=== PATIENT | male | born 1955 | race Caucasian/White ===

== ENCOUNTER 2016-10-04 14:37 | Emergency (ER) | payer SELFPAY ==
[~2016-10-04] VITALS: Ht 170.2 cm; Wt 80.5 kg
[~2016-10-04 14:37] MED LIST: HYDR-3533 PO; NAPR500 PO
[2016-10-04 14:41] VITALS: BP 179/85; PULSE 81; RESP 14; TEMP 98.2; O2SAT 99
--- NOTE | 2016-10-04 14:47 | PD ---
Physical Exam Time Seen by Provider: 14:45 Narrative 61yo M c/o L foot pain x 3 days. No injury. Denies fever. VS reviewed. Patient seen in triage. Awaiting bed placement. Data Data Last Documented VS Vital Signs Date Time Temp Pulse Resp B/P Pulse Ox O2 Delivery O2 Flow Rate FiO2 10/04/16 14:41 98.2 81 14 179/85 99 MDM Supervised Visit with MARIAJOSE: Rochelle Guaman October 04, 2016 14:47
--- NOTE | 2016-10-04 15:41 | PD ---
HPI . left ankle pain x 3 days with swelling Chief Complaint: Edema Time Seen by Provider: 15:41 Travel History International Travel<30 days: No Contact w/Intl Traveler<30days: No Traveled to known affect area: No History of Present Illness HPI 61-year-old male who recently suffered a stroke about 2 and half weeks ago here with complaints of left ankle pain and swelling for the past 3 days. Patient does have history of gout and thinks he may be having an acute flare up. He denies any recent injury to this left ankle. He tells me that it is difficult walking and the pain is severe. He is accompanied by his . He has no other complaints. [facility] Past Medical History Gout: Yes Immunizations Current: Yes Social History Alcohol Use: Yes (beer daily) Tobacco Use: Yes Substance Use: No Allergies-Medications (Allergen,Severity, Reaction): Coded Allergies: Lidocaine (Verified Allergy, Severe, Swelling, 10/04/16) Reported Meds & Prescriptions Reported Meds & Active Scripts Active Prednisone 50 Mg Tab 50 Mg PO DAILY Reported Plavix (Clopidogrel Bisulfate) 75 Mg Tab 75 Mg PO DAILY Crestor (Rosuvastatin Calcium) 40 Mg Tab 40 Mg PO HS Aspirin 325 Mg Tab 325 Mg PO DAILY Review of Systems General / Constitutional: No: Fever Eyes: No: Visual changes HENT: No: Headaches Cardiovascular: No: Chest Pain or Discomfort Respiratory: No: Shortness of Breath Gastrointestinal: No: Abdominal Pain Genitourinary: No: Dysuria Musculoskeletal: Positive: Pain (left ankle pain) Skin: No Rash Neurologic: No: Weakness Psychiatric: No: Depression Endocrine: No: Polydipsia Hematologic/Lymphatic: No: Easy Bruising Physical Exam Narrative GENERAL: AAO x 3, no acute distress, Well-nourished, well-developed patient. SKIN: Warm and dry. No visible rashes or bruising. HEAD: Normocephalic and atraumatic. EYES: No scleral icterus. No injection or drainage. ENT: No nasal drainage noted. Mucous membranes pink. Airway patent. NECK: Supple, trachea midline. No JVD. CARDIOVASCULAR: Regular rate and rhythm without murmurs, gallops, or rubs. RESPIRATORY: Breath sounds equal bilaterally. No accessory muscle use. No rhonchi or rales. GASTROINTESTINAL: Abdomen soft, non-tender, nondistended. EXTREMITIES: No cyanosis, left ankle mild edema, mildly warm to touch, tender to touch, ROM normal. gouty tophi on 2nd toe of left foot NEURO: sensation and strength intact BACK: Nontender without obvious deformity. No CVA tenderness. PSYCH: AAO x 3, normal affect. Data Data Last Documented VS Vital Signs Date Time Temp Pulse Resp B/P Pulse Ox O2 Delivery O2 Flow Rate FiO2 10/04/16 15:41 Room Air 10/04/16 14:41 98.2 81 14 179/85 99 Orders Ketorolac Inj (Toradol Inj) (10/04/16 16:00) [facility] Medical Decision Making Medical Screen Exam Complete: Yes Emergency Medical Condition: Yes Medical Record Reviewed: Yes Differential Diagnosis gout, OA, RA, less likely sprain, less likely fracture Narrative Course 61-year-old male who recently suffered a stroke about 2 and half weeks ago here with complaints of left ankle pain and swelling for the past 3 days. Patient does have history of gout and thinks he may be having an acute flare up. He denies any recent injury to this left ankle. He tells me that it is difficult walking and the pain is severe. He is accompanied by his . He has no other complaints. Patient seen and examined. he appears to have an acute flare of gout. I will go ahead and prescribe him some steroids. In the emergency department I have provided him with a Toradol injection. Recommend follow-up with his primary care provider. Patient verbalized understanding of instructions, questions were answered, and thanked me for their care. I advised them if their condition worsens, please return to the nearest emergency room for further care. Diagnosis Primary Impression: Gout of ankle Qualified Code: M10.9 - Gout of left ankle, unspecified cause, unspecified chronicity Patient Instructions: General Instructions, Gout (ED) Additional Instructions: Please return to emergency department if your symptoms return or worsen. Follow up with your primary care provider. Take medications as prescribed. Med/Other Pt SpecificInfo: Prescription(s) given Scripts Prednisone 50 Mg Tab50 Mg PO DAILY #5 TAB Prov:Lila Huff MD 10/04/16 Disposition: 01 DISCHARGE HOME Condition: Stable Marisel Rubio October 04, 2016 15:41 Marisel Rubio October 04, 2016 15:41
[2016-10-04] MEDS ORDERED: PLAV75TA29 PO (15:45)
[2016-10-04] MEDS ORDERED: ASPI325T PO (15:45)
[2016-10-04] MEDS ORDERED: ROSU40 PO (15:45)
[2016-10-04] MEDS ORDERED: PRED50 PO (15:51)
[2016-10-04] MEDS ORDERED: KETOROLAC TROMETHAMINE 60 MG/2 ML (IM) VIAL IM ONE (16:00)
== END 2016-10-04 16:52 | disposition home or self-care (01) ==
LOC: NEPK 14:37
DX: M10.9 Gout, unspecified (principal); Z72.0 Tobacco use
CPT/HCPCS: 96372; 99283; J1885

== ENCOUNTER 2016-10-14 15:43 | Emergency (ER) | payer OTHER ==
[~2016-10-14] VITALS: Ht 170.2 cm; Wt 80.0 kg
[~2016-10-14 15:43] MED LIST changes: +ASPI325T PO; -HYDR-3533 PO; -NAPR500 PO; +PLAV75TA29 PO; +PRED50 PO; +ROSU40 PO
[2016-10-14 15:46] VITALS: BP 172/79; PULSE 84; RESP 14; TEMP 99; O2SAT 99
--- NOTE | 2016-10-14 15:49 | PD ---
Physical Exam Date Seen by Provider: October 14, 2016 Time Seen by Provider: 15:46 Narrative 61 YOWM C/O L HAND LAC WED. NOW PAINFUL AND SWOLLEN. IUTD VVS WAITING FOR BED PLACEMENT MDM Medical Record Reviewed: Yes Supervised Visit with MARIAJOSE: Vamshi Cazares October 14, 2016 15:49
[2016-10-14] MEDS ORDERED: TETANUS/DIPHTHERIA TOXOID ADULT 0.5 ML VIAL IM ONE (17:00)
[2016-10-14] MEDS ORDERED: SODIUM CHLORIDE 0.9% FLUSH 10 ML FLUSH IV FLUSH PRN (17:00)
--- NOTE | 2016-10-14 17:10 | PD ---
HPI Chief Complaint: Laceration/Skin Injury Time Seen by Provider: 17:08 Travel History International Travel<30 days: No Contact w/Intl Traveler<30days: No Traveled to known affect area: No History of Present Illness HPI Patient comes in complaining of left hand pain and swelling that began yesterday. Patient states 2 days ago he accidentally cut his left hand to lateral aspect while at work. He reports his cleaned it with over-the- counter antiseptic and put a Band-Aid on for him. Patient states pain got progressively worse throughout the night. Patient is right-hand dominant. Patient states pain is more over the first and second metacarpals and radiates into the wrist. Patient is uncertain if this is from his gout or something else. Pain is worse when he tries to make a fist or flex his wrist. Patient denies doing anything for this. Patient is uncertain of his last tetanus shot. PFSH Past Medical History Hx Anticoagulant Therapy: Yes Cerebrovascular Accident: Yes Gout: Yes Immunizations Current: Yes Social History Alcohol Use: Yes (beer daily) Tobacco Use: Yes Substance Use: No Allergies-Medications (Allergen,Severity, Reaction): Coded Allergies: Lidocaine (Verified Allergy, Severe, Swelling, 10/14/16) Reported Meds & Prescriptions Reported Meds & Active Scripts Active Keflex (Cephalexin) 500 Mg Cap 500 Mg PO Q8H Indomethacin 25 Mg Cap 25 Mg PO Q8HR PRN Take with food, milk, or antacids to decrease stomach adverse effects. Prednisone 50 Mg Tab 50 Mg PO DAILY Reported Plavix (Clopidogrel Bisulfate) 75 Mg Tab 75 Mg PO DAILY Crestor (Rosuvastatin Calcium) 40 Mg Tab 40 Mg PO HS Aspirin 325 Mg Tab 325 Mg PO DAILY Review of Systems Except as stated in HPI: all other systems reviewed are Neg Physical Exam Narrative GENERAL: Well-developed, well nourished, in no acute distress, and non-ill appearing. SKIN: Focused skin assessment warm and dry. Small superficial abrasion noted over the fifth metacarpal left hand palmar surface. It is nonerythematous, without crepitus, nontender, afebrile, without drainage, or other signs of infection. HEAD: Atraumatic. Normocephalic. EYES: Pupils equal and round. EOMI. No scleral icterus. No injection or drainage. ENT: No nasal bleeding or discharge. Mucous membranes pink and moist. NECK: Trachea midline. Supple. No nuclear rigidity. CARDIOVASCULAR: Radial pulses 2+, intact, and equal bilaterally. Capillary refill less than 2 seconds. RESPIRATORY: No accessory muscle use. No respiratory distress. MUSCULOSKELETAL: No obvious deformities. No clubbing. No cyanosis. No edema. Decreased range of motion left wrist secondary to pain. Wrist: FROM and equal BL with passive extension, and pronation/supination. Capillary refill less than 2 seconds distal to injury and equal BL. FROM distal to injury and equal BL. Strength distal to injury equal BL. NV intact distal to injury. Flexion and extension of thumb equal BL. Equal strength and movement with abduction/ adductions of BL fingers. [employer] strength equal BL. No tenderness to the anatomical snuffbox. Patient reports tenderness to palpation over dorsal aspect of right hand first and second metacarpal as well as aspect of right wrist. There is soft tissue swelling noted and minimal erythematous. There is no induration, fluctuation, crepitus, or streaking. NEUROLOGICAL: Awake and alert. No obvious cranial nerve deficits. Motor grossly within normal limits. Normal speech. PSYCHIATRIC: Appropriate mood and affect; insight and judgment normal. Data Data Last Documented VS Vital Signs Date Time Temp Pulse Resp B/P Pulse Ox O2 Delivery O2 Flow Rate FiO2 10/14/16 19:13 80 12 166/72 100 10/14/16 15:46 99.0 Orders Tetanus/Diphtheria Tox Adult (Tetanus/Di (10/14/16 17:00) Basic Metabolic Panel (Bmp) (10/14/16 16:57) Complete Blood Count With Diff (10/14/16 16:57) Prothrombin Time / Inr (Pt) (10/14/16 16:57) Act Partial Throm Time (Ptt) (10/14/16 16:57) Iv Access Insert/Monitor (10/14/16 16:57) Ecg Monitoring (10/14/16 16:57) Oximetry (10/14/16 16:57) Sodium Chloride 0.9% Flush (Ns Flush) (10/14/16 17:00) C-Reactive Protein (Crp) (10/14/16 16:57) Uric Acid (10/14/16 16:57) Hand, Complete (Gne4kre) (10/14/16 ) Ketorolac Inj (Toradol Inj) (10/14/16 17:45) Clindamycin Inj (Cleocin Inj) (10/14/16 18:00) Ice/Cold Pack (10/14/16 17:50) Labs Laboratory Tests Test 10/14/16 17:30 White Blood Count 17.3 TH/MM3 Red Blood Count 4.67 MIL/MM3 Hemoglobin 14.4 GM/DL Hematocrit 43.5 % Mean Corpuscular Volume 93.3 FL Mean Corpuscular Hemoglobin 30.9 PG Mean Corpuscular Hemoglobin 33.2 % Concent Red Cell Distribution Width 13.6 % Platelet Count 271 TH/MM3 Mean Platelet Volume 8.0 FL Neutrophils (%) (Auto) 81.6 % Lymphocytes (%) (Auto) 6.3 % Monocytes (%) (Auto) 11.3 % Eosinophils (%) (Auto) 0.4 % Basophils (%) (Auto) 0.4 % Neutrophils # (Auto) 14.1 TH/MM3 Lymphocytes # (Auto) 1.1 TH/MM3 Monocytes # (Auto) 2.0 TH/MM3 Eosinophils # (Auto) 0.1 TH/MM3 Basophils # (Auto) 0.1 TH/MM3 CBC Comment DIFF FINAL Differential Comment Prothrombin Time 10.7 SEC Prothromb Time International 1.0 RATIO Ratio Activated Partial 27.5 SEC Thromboplast Time Sodium Level 138 MEQ/L Potassium Level 3.8 MEQ/L Chloride Level 104 MEQ/L Carbon Dioxide Level 27.5 MEQ/L Anion Gap 7 MEQ/L Blood Urea Nitrogen 9 MG/DL Creatinine 0.92 MG/DL Estimat Glomerular Filtration 83 ML/MIN Rate Random Glucose 121 MG/DL Uric Acid 6.1 MG/DL Calcium Level 8.8 MG/DL C-Reactive Protein 1.84 MG/DL [facility] Medical Decision Making Medical Screen Exam Complete: Yes Emergency Medical Condition: Yes Interpretation(s) X-ray of the hand reviewed read by the radiologist shows: There is a tiny punctate foreign body along the radial aspect of the second digit at the level of the metacarpophalangeal joint. I suspect this is an old finding as it is to far from laceration and is near an old healed wound. Differential Diagnosis Gout, pseudogout, cellulitis, retained foreign body, tenosynovitis, abscess, other Narrative Course Patient appears to have arthropathy. There is no evidence to suggest infectious , septic joint at this time. There was no significant erythema, heat, swelling or fluctuance. The patient has small superficial abrasion noted on the affected hand and was placed on antibiotics prophylactically for this. This does not appear to be the cause of patient's pain and swelling.. There has been no fever. The patient has had similar episodes and has a history of gout. There is no trauma to suspect contusion, strain or fracture. There is no evidence to suggest occult fracture or bony tumor by x-ray. There is no clinical evidence to suggest bursitis, tendonitis, osteoarthritis, Rheumatoid arthritis, or septic arthritis. The patient was placed on antibiotics and NSAID medication and the patient was instructed on ice packs as well. The patient was instructed to follow-up with his workman's comp provider or hand surgeon. The patient agreed with plan. Patient in no obvious distress upon re-evaluation. All pertinent laboratory/ Radiology result(s) discussed with patient/family. Discussed patient with Dr. Carlton prior to discharge, who saw and evaluated the patient and is in agreement with plan of care and disposition. Any questions/concerns in reference to patient diagnosis/condition discussed and clarified prior to patient's discharge. Reinforced sheer importance of close follow up with patient 's primary physician or primary care clinic. Instructed patient to return to ED immediately, if symptoms return/worsen. Pt showed understanding of above instructions. Further instructions and recommendations were detailed in discharge paperwork. Pt ambulated without difficulty out of ED at discharge. Diagnosis Primary Impression: Left hand pain Additional Impression: Arthropathy Referrals: Rose Dawn MD Patient Instructions: Acute Gouty Arthritis (ED), General Instructions Additional Instructions: Follow-up with your primary care physician and/or hand surgeon in 3-5 days for reevaluation. Take all medication as prescribed. Apply ice to affected area 20 minutes per hour as needed for pain. Return to the emergency department immediately if symptoms get worse. Med/Other Pt SpecificInfo: Prescription(s) given Scripts Cephalexin (Keflex)500 Mg [id number] Mg PO Q8H #30 CAP Ref 0 Prov:Jose Carlton MD 10/14/16 Indomethacin 25 Mg Cap25 Mg PO Q8HR PRN (PAIN SCALE 1 TO 10) #12 CAP Ref 0 Take with food, milk, or antacids to decrease stomach adverse effects. Prov:Jose Carlton MD 10/14/16 Disposition: 01 DISCHARGE HOME Condition: Jef Mccormick October 14, 2016 17:10
[2016-10-14 17:44] LABS: AUTOMATED NEUTROPHIL # 14.1 TH/MM3 (1.8-7.7); BASOPHIL # 0.1 TH/MM3 (0-0.2); BASOPHIL % 0.4 % (0.0-2.0); EOSINOPHIL # 0.1 TH/MM3 (0-0.4); EOSINOPHIL % 0.4 % (0.0-4.0); HEMATOCRIT 43.5 % (39.0-51.0); HEMO FLAGS DIFF FINAL; LYMPH % 6.3 % (9.0-44.0); LYMPHOCYTE # 1.1 TH/MM3 (1.0-4.8); MEAN CELL VOLUME 93.3 FL (80.0-100.0); MEAN CORPUSCULAR HEMOGLOBIN 30.9 PG (27.0-34.0); MEAN CORPUSCULAR HGB CONC 33.2 % (32.0-36.0); MONO % 11.3 % (0.0-8.0); NEUT % 81.6 % (16.0-70.0); PLATELET COUNT 271 TH/MM3 (150-450); RED BLOOD COUNT 4.67 MIL/MM3 (4.50-5.90); RED CELL DISTRIBUTION WIDTH 13.6 % (11.6-17.2); WHITE BLOOD COUNT 17.3 TH/MM3 (4.0-11.0)
[2016-10-14] MEDS ORDERED: KETOROLAC TROMETHAMINE 30 MG/ML (IVP) VIAL IV PUSH ONE (17:45)
--- NOTE | 2016-10-14 17:45 | RADRPT ---
EXAM DATE/TIME: 10/14/2016 17:19 [facility] COMPARISON: No previous studies available for comparison. INDICATIONS : Swollen left hand, possible puncture injury, gout MEDICAL HISTORY : None. SURGICAL HISTORY : None. ENCOUNTER: Initial ACUITY: 4 - 6 days PAIN SCORE: 7/10 LOCATION: Left hand FINDINGS: There is no evidence of acute fracture. Bony mineralization is normal. There is a tiny punctate forei gn body along the radial aspect of the second digit at the level of the metacarpophalangeal joint. CONCLUSION: 1. Tiny foreign body as above Slim Snow MD on October 14, 2016 at 17:43 Board Certified Radiologist. This report was verified electronically.
[2016-10-14 17:52] LABS: APTT (PATIENT) 27.5 SEC (24.3-30.1); PROTHROMBIN TIME - PATIENT 10.7 SEC (9.8-11.6)
[2016-10-14] MEDS ORDERED: CLINDAMYCIN INJ 600 MG in SODIUM CHLORIDE 0.9% INJ 100 ML IV ONE (18:00)
[2016-10-14 18:14] LABS: BICARBONATE 27.5 MEQ/L (21.0-32.0); POTASSIUM 3.8 MEQ/L (3.5-5.1); URIC ACID 6.1 MG/DL (2.6-7.2)
[2016-10-14] MEDS ORDERED: CEPH-460 PO (18:29)
[2016-10-14] MEDS ORDERED: INDO25CA PO (18:29)
[2016-10-14 19:13] VITALS: BP 166/72; PULSE 80; RESP 12; O2SAT 100
== END 2016-10-14 19:28 | disposition home or self-care (01) ==
LOC: NEPD 15:43
DX: M79.642 Pain in left hand (principal); M12.9 Arthropathy, unspecified; W45.8XXA Other foreign body or object entering through skin, initial encounter; Y99.0 Civilian activity done for income or pay; Z72.0 Tobacco use; Z23 Encounter for immunization; Z79.01 Long term (current) use of anticoagulants
CPT/HCPCS: 73130; 80048; 84550; 85025; 85610; 85730; 86140; 90471; 90714; 96374; 96375; 99283; J1885

== ENCOUNTER 2016-11-27 14:17 | Inpatient (IN) | payer SELFPAY ==
[~2016-11-27] VITALS: Ht 167.6 cm; Wt 77.8 kg
[~2016-11-27 14:17] MED LIST changes: +CEPH-460 PO; +INDO25CA PO
[2016-11-27 14:20] VITALS: BP 193/90; PULSE 70; RESP 20; TEMP 97.1; O2SAT 99
[2016-11-27 14:27] VITALS: BP 181/99; PULSE 75; RESP 17; O2SAT 97
[2016-11-27] MEDS ORDERED: SODIUM CHLOR 0.9% 1000 ML INJ 1,000 ML IV SCH (14:32)
--- NOTE | 2016-11-27 15:10 | PD ---
HPI Chief Complaint: Altered Mental Status Time Seen by Provider: 15:04 Travel History International Travel<30 days: No Contact w/Intl Traveler<30days: No Traveled to known affect area: No History of Present Illness HPI 61-year-old male that presents to the ED for evaluation of what appears to be altered mental status. Patient comes here with who is the one who made him come. reports that for the past 2 months patient has been somewhat altered have episodes of confusion. The past 2 weeks patient has been deteriorating more to the point that since yesterday he's not been wanting to eat and not been able to ambulate without falling. Patient is very unstable on his feet. Patient has a history of a CVA in the past and used to take Plavix but he no longer takes any medications as he ran out of his medications. He apparently had a stroke in August. He has no PCP. reports that the altered mental status comes and goes. On my exam patient appears to be somewhat confused and is not able to answer some questions appropriately. He appears to know place but not time and seems to be aware of the reason he is here. Per he did not want to come and she wanted him to come yesterday as he continued to deteriorate. Per he does have some chronic deficits including speech impediment as well as weakness on the right side. Per he continues to have these episodes. Patient himself is not able to elaborate any story and he denies any pain of any kind. He does have a history of gout and has been here for gout in the past multiple times. He has fallen a couple times but unclear if any head injury. PFSH Past Medical History Hx Anticoagulant Therapy: Yes Cerebrovascular Accident: Yes (08/2016) Gout: Yes Immunizations Current: Yes Tetanus Vaccination: < 5 Years Influenza Vaccination: No ?: Not Past Surgical History Surgical History: No Previous Surgery Social History Alcohol Use: No (DENIES) Tobacco Use: No Substance Use: No Allergies-Medications (Allergen,Severity, Reaction): Coded Allergies: Lidocaine (Verified Allergy, Severe, Swelling, 11/27/16) Reported Meds & Prescriptions Reported Meds & Active Scripts Active Keflex (Cephalexin) 500 Mg Cap 500 Mg PO Q8H Indomethacin 25 Mg Cap 25 Mg PO Q8HR PRN Take with food, milk, or antacids to decrease stomach adverse effects. Prednisone 50 Mg Tab 50 Mg PO DAILY Reported Plavix (Clopidogrel Bisulfate) 75 Mg Tab 75 Mg PO DAILY Crestor (Rosuvastatin Calcium) 40 Mg Tab 40 Mg PO HS Aspirin 325 Mg Tab 325 Mg PO DAILY Review of Systems Except as stated in HPI: all other systems reviewed are Neg Physical Exam Narrative GENERAL: SKIN: Warm and dry. HEAD: Atraumatic. Normocephalic. EYES: Pupils equal and round 4 mm reactive to light and accommodation. No scleral icterus. No injection or drainage. ENT: No nasal bleeding or discharge. Mucous membranes pink and moist. Tongue is midline. No uvula deviation. NECK: Trachea midline. No JVD. CARDIOVASCULAR: Regular rate and rhythm. No murmurs, S3, S4. RESPIRATORY: No accessory muscle use. Clear to auscultation. Breath sounds equal bilaterally. GASTROINTESTINAL: Abdomen soft, non-tender, nondistended. Hepatic and splenic margins not palpable. MUSCULOSKELETAL: Extremities without clubbing, cyanosis, or edema. No obvious deformities. Full range of motion of the upper and lower extremities bilaterally. 2+ pulses bilaterally. NEUROLOGICAL: Awake and alert and oriented to person and place but not time. No obvious cranial nerve deficits. Motor grossly within normal limits. Five out of 5 muscle strength in the arms and legs. Normal speech. PSYCHIATRIC: Appropriate mood and affect; insight and judgment normal. Data Data Last Documented VS Vital Signs Date Time Temp Pulse Resp B/P Pulse Ox O2 Delivery O2 Flow Rate FiO2 11/27/16 15:20 64 18 139/62 99 Room Air 11/27/16 14:20 97.1 Orders Electrocardiogram (11/27/16 14:32) Complete Blood Count With Diff (11/27/16 14:32) Comprehensive Metabolic Panel (11/27/16 14:32) Creatine Kinase (Cpk) (11/27/16 14:32) Ckmb (Isoenzyme) Profile (11/27/16 14:32) Troponin I (11/27/16 14:32) Prothrombin Time / Inr (Pt) (11/27/16 14:32) Act Partial Throm Time (Ptt) (11/27/16 14:32) Blood Culture (11/27/16 14:32) Lipase (11/27/16 14:32) Urinalysis - C+S If Indicated (11/27/16 14:32) Urine Culture (11/27/16 14:32) Magnesium (Mg) (11/27/16 14:32) Ammonia (11/27/16 14:32) Thyroid Stimulating Hormone (11/27/16 14:32) Chest, Single Ap (11/27/16 14:32) Ct Brain W/O Iv Contrast(Rout) (11/27/16 14:32) Iv Access Insert/Monitor (11/27/16 14:32) Ecg Monitoring (11/27/16 14:32) Oximetry (11/27/16 14:32) Blood Glucose (11/27/16 14:32) Drug Screen, Random Urine (11/27/16 14:32) Alcohol (Ethanol) (11/27/16 14:32) Sodium Chlor 0.9% 1000 Ml Inj (Ns 1000 M (11/27/16 14:32) Admit Order (Ed Use Only) (11/27/16 17:50) Labs Laboratory Tests Test 11/27/16 14:45 White Blood Count 10.9 TH/MM3 Red Blood Count 5.11 MIL/MM3 Hemoglobin 16.0 GM/DL Hematocrit 47.8 % Mean Corpuscular Volume 93.5 FL Mean Corpuscular Hemoglobin 31.3 PG Mean Corpuscular Hemoglobin 33.5 % Concent Red Cell Distribution Width 14.7 % Platelet Count 297 TH/MM3 Mean Platelet Volume 9.2 FL Neutrophils (%) (Auto) 72.2 % Lymphocytes (%) (Auto) 16.1 % Monocytes (%) (Auto) 9.9 % Eosinophils (%) (Auto) 1.2 % Basophils (%) (Auto) 0.6 % Neutrophils # (Auto) 7.9 TH/MM3 Lymphocytes # (Auto) 1.8 TH/MM3 Monocytes # (Auto) 1.1 TH/MM3 Eosinophils # (Auto) 0.1 TH/MM3 Basophils # (Auto) 0.1 TH/MM3 CBC Comment DIFF FINAL Differential Comment Prothrombin Time 11.0 SEC Prothromb Time International 1.0 RATIO Ratio Activated Partial 28.7 SEC Thromboplast Time Urine Color YELLOW Urine Turbidity CLEAR Urine pH 5.5 Urine Specific [place] 1.029 Urine Protein TRACE mg/dL Urine Glucose (UA) NEG mg/dL Urine Ketones NEG mg/dL Urine Occult Blood NEG Urine Nitrite NEG Urine Bilirubin NEG Urine Urobilinogen 2.0 MG/DL Urine Leukocyte Esterase NEG Urine RBC 2 /hpf Urine WBC 1 /hpf Urine Squamous Epithelial <1 /hpf Cells Urine Mucus FEW /lpf Microscopic Urinalysis Comment CULT NOT INDICATED Sodium Level 142 MEQ/L Potassium Level 4.3 MEQ/L Chloride Level 105 MEQ/L Carbon Dioxide Level 30.4 MEQ/L Anion Gap 7 MEQ/L Blood Urea Nitrogen 15 MG/DL Creatinine 0.92 MG/DL Estimat Glomerular Filtration 83 ML/MIN Rate Random Glucose 95 MG/DL Calcium Level 9.8 MG/DL Magnesium Level 2.0 MG/DL Total Bilirubin 0.7 MG/DL Aspartate Amino Transf 16 U/L (AST/SGOT) Alanine Aminotransferase 35 U/L (ALT/SGPT) Alkaline Phosphatase 76 U/L Ammonia 22 MCMOL/L Total Creatine Kinase 66 U/L Troponin I LESS THAN 0.02 NG/ML Total Protein 7.6 GM/DL Albumin 4.3 GM/DL Lipase 165 U/L Thyroid Stimulating Hormone 1.560 uIU/ML 3rd Gen Urine Opiates Screen NEG Urine Barbiturates Screen NEG Urine Amphetamines Screen NEG Urine Benzodiazepines Screen NEG Urine Cocaine Screen NEG Urine Cannabinoids Screen NEG Ethyl Alcohol Level LESS THAN 3 MG/DL MDM Medical Decision Making Medical Screen Exam Complete: Yes Emergency Medical Condition: Yes Medical Record Reviewed: Yes Interpretation(s) UA negative EKG shows sinus rhythm with no sign of acute ischemia or arrhythmia. RBBB noted. Read by me and attending. Differential Diagnosis CVA versus chronic CVA versus altered mental status versus encephalopathy versus sepsis versus cancer versus URI versus generalized weakness Narrative Course 61-year-old male that presents to the ED for evaluation of what appears to be altered mental status. Patient was properly examined and was found to have signs and symptoms very consistent what appears to be altered mental status. Unclear etiology. Patient himself is not a good historian he already has a history of CVA. In terms appear to be ongoing and not constant as well as waning for the past 2 months and worsening for the past 2 weeks. Patient is noncompliant with medications and has no PCP. At this time last and imaging and recommended he agrees to proceed with this. IV was started. Patient was started on IV fluids. Labs and imaging showed what appears to be likely subacute CVA. This likely happened yesterday since per symptoms were worse yesterday. Case was discussed with my attending who agrees with plan. Patient will be admitted as he is not able to take care of self and secondary to his altered mental status. Case discussed with Dr. Modi who agrees to admission. Diagnosis Primary Impression: Altered mental status Qualified Code: R41.82 - Altered mental status, unspecified altered mental status type Admitting Information Admitting Physician Requests: Cristian Denis Nov 27, 2016 15:10
[2016-11-27 15:20] VITALS: BP 139/62; PULSE 64; RESP 18; O2SAT 99
[2016-11-27 15:24] LABS: BLOOD, URINE NEG (NEG); COMMENT (UR) CULT NOT INDICATED; CULTURE IF INDICATED CULT NOT INDICATED; GLUCOSE,URINE NEG (NEG); KETONE, URINE NEG (NEG); MUCUS URINE FEW /lpf (OCC); NITRITE,URINE NEG (NEG); PH, URINE 5.5 (5.0-8.5); SQUAMOUS EPITHELIAL CELL URINE <1 /hpf (0-5); URINE COLOR YELLOW (YELLW/STRAW)
[2016-11-27 15:27] LABS: AMPHETAMINE, URINE NEG (NEG); BARBITURATES, URINE NEG (NEG); COCAINE, URINE NEG (NEG)
[2016-11-27 15:35] LABS: AUTOMATED NEUTROPHIL # 7.9 TH/MM3 (1.8-7.7); BASOPHIL # 0.1 TH/MM3 (0-0.2); BASOPHIL % 0.6 % (0.0-2.0); EOSINOPHIL # 0.1 TH/MM3 (0-0.4); EOSINOPHIL % 1.2 % (0.0-4.0); HEMATOCRIT 47.8 % (39.0-51.0); HEMO FLAGS DIFF FINAL; LYMPH % 16.1 % (9.0-44.0); LYMPHOCYTE # 1.8 TH/MM3 (1.0-4.8); MEAN CELL VOLUME 93.5 FL (80.0-100.0); MEAN CORPUSCULAR HEMOGLOBIN 31.3 PG (27.0-34.0); MEAN CORPUSCULAR HGB CONC 33.5 % (32.0-36.0); MONO % 9.9 % (0.0-8.0); NEUT % 72.2 % (16.0-70.0); PLATELET COUNT 297 TH/MM3 (150-450); RED BLOOD COUNT 5.11 MIL/MM3 (4.50-5.90); RED CELL DISTRIBUTION WIDTH 14.7 % (11.6-17.2); WHITE BLOOD COUNT 10.9 TH/MM3 (4.0-11.0)
[2016-11-27 15:41] LABS: ALT (GPT) 35 U/L (12-78); ANION GAP 7 MEQ/L (5-15); AST (GOT) 16 U/L (15-37); BICARBONATE 30.4 MEQ/L (21.0-32.0); BLOOD UREA NITROGEN 15 MG/DL (7-18); CHLORIDE 105 MEQ/L (98-107); GLOMERULAR FILTRATION RATE 83 ML/MIN (>89); POTASSIUM 4.3 MEQ/L (3.5-5.1); SODIUM (NA) 142 MEQ/L (136-145)
[2016-11-27 15:48] LABS: APTT (PATIENT) 28.7 SEC (24.3-30.1)
[2016-11-27 15:49] LABS: ALKALINE PHOSPHATASE 76 U/L (45-117); TOTAL BILIRUBIN ADULT 0.7 MG/DL (0.2-1.0)
--- NOTE | 2016-11-27 15:51 | RADRPT ---
EXAM DATE/TIME: 11/27/2016 15:13 [facility] COMPARISON: No previous studies available for comparison. INDICATIONS : Syncopal Episode MEDICAL HISTORY : None. SURGICAL HISTORY : None. ENCOUNTER: Initial ACUITY: 1 day PAIN SCORE: 0/10 LOCATION: Bilateral chest FINDINGS: A single view of the chest demonstrates no focal consolidation. Tortuous aorta. Heart size within nor mal limits. No pneumothorax. CONCLUSION: 1. No acute findings. Vamshi Lowe MD on November 27, 2016 at 15:48 Board Certified Radiologist. This report was verified electronically.
[2016-11-27 15:55] LABS: CREATINE KINASE 66 U/L (39-308)
--- NOTE | 2016-11-27 17:40 | RADRPT ---
EXAM DATE/TIME: 11/27/2016 16:01 [facility] COMPARISON: No previous studies available for comparison. INDICATIONS : Altered mental status and general weakness. RADIATION DOSE: 51.54 CTDIvol (mGy) MEDICAL HISTORY : Stroke. SURGICAL HISTORY : None. ENCOUNTER: Initial ACUITY: 1 day PAIN SCALE: 0/10 LOCATION: Bilateral head TECHNIQUE: Multiple contiguous axial images were obtained of the head. Using automated exposure control and adj ustment of the mA and/or kV according to patient size, radiation dose was kept as low as reasonably a chievable to obtain optimal diagnostic quality images. DICOM format image data is available electro nically for review and comparison. FINDINGS: There is an area of low density seen at the frontal lobe. This extends through the cortical surface. It involves the sylvester and white matter. This area measures approximately 3.5 cm in transver se dimension and extends over a 4 cm height. There is a small area of low density seen at the anterior left basal ganglia. No area of hemorrhage is seen. No extra-axial fluid collections are seen. The ventricles and cortical sulci are within normal limits for the patient's age. The basal cisterns are open. The posterior fossa structures ar e unremarkable. The bony structures are grossly intact. CONCLUSION: Area of low density at the left frontal lobe and a small area at the anterior left basal ganglia like ly representing sub acute areas of infarction. Uri Davis MD on November 27, 2016 at 16:31 Board Certified Radiologist. This report was verified electronically.
[2016-11-27 18:05] VITALS: BP 184/87; PULSE 84; RESP 16; O2SAT 98
--- NOTE | 2016-11-27 18:42 | PD ---
Data Data Last Documented VS Vital Signs Date Time Temp Pulse Resp B/P Pulse Ox O2 Delivery O2 Flow Rate FiO2 11/27/16 15:20 64 18 139/62 99 Room Air 11/27/16 14:20 97.1 Orders Electrocardiogram (11/27/16 14:32) Complete Blood Count With Diff (11/27/16 14:32) Comprehensive Metabolic Panel (11/27/16 14:32) Creatine Kinase (Cpk) (11/27/16 14:32) Ckmb (Isoenzyme) Profile (11/27/16 14:32) Troponin I (11/27/16 14:32) Prothrombin Time / Inr (Pt) (11/27/16 14:32) Act Partial Throm Time (Ptt) (11/27/16 14:32) Blood Culture (11/27/16 14:32) Lipase (11/27/16 14:32) Urinalysis - C+S If Indicated (11/27/16 14:32) Urine Culture (11/27/16 14:32) Magnesium (Mg) (11/27/16 14:32) Ammonia (11/27/16 14:32) Thyroid Stimulating Hormone (11/27/16 14:32) Chest, Single Ap (11/27/16 14:32) Ct Brain W/O Iv Contrast(Rout) (11/27/16 14:32) Iv Access Insert/Monitor (11/27/16 14:32) Ecg Monitoring (11/27/16 14:32) Oximetry (11/27/16 14:32) Blood Glucose (11/27/16 14:32) Drug Screen, Random Urine (11/27/16 14:32) Alcohol (Ethanol) (11/27/16 14:32) Sodium Chlor 0.9% 1000 Ml Inj (Ns 1000 M (11/27/16 14:32) Admit Order (Ed Use Only) (11/27/16 17:50) Labs Laboratory Tests Test 11/27/16 14:45 White Blood Count 10.9 TH/MM3 Red Blood Count 5.11 MIL/MM3 Hemoglobin 16.0 GM/DL Hematocrit 47.8 % Mean Corpuscular Volume 93.5 FL Mean Corpuscular Hemoglobin 31.3 PG Mean Corpuscular Hemoglobin 33.5 % Concent Red Cell Distribution Width 14.7 % Platelet Count 297 TH/MM3 Mean Platelet Volume 9.2 FL Neutrophils (%) (Auto) 72.2 % Lymphocytes (%) (Auto) 16.1 % Monocytes (%) (Auto) 9.9 % Eosinophils (%) (Auto) 1.2 % Basophils (%) (Auto) 0.6 % Neutrophils # (Auto) 7.9 TH/MM3 Lymphocytes # (Auto) 1.8 TH/MM3 Monocytes # (Auto) 1.1 TH/MM3 Eosinophils # (Auto) 0.1 TH/MM3 Basophils # (Auto) 0.1 TH/MM3 CBC Comment DIFF FINAL Differential Comment Prothrombin Time 11.0 SEC Prothromb Time International 1.0 RATIO Ratio Activated Partial 28.7 SEC Thromboplast Time Urine Color YELLOW Urine Turbidity CLEAR Urine pH 5.5 Urine Specific [place] 1.029 Urine Protein TRACE mg/dL Urine Glucose (UA) NEG mg/dL Urine Ketones NEG mg/dL Urine Occult Blood NEG Urine Nitrite NEG Urine Bilirubin NEG Urine Urobilinogen 2.0 MG/DL Urine Leukocyte Esterase NEG Urine RBC 2 /hpf Urine WBC 1 /hpf Urine Squamous Epithelial <1 /hpf Cells Urine Mucus FEW /lpf Microscopic Urinalysis Comment CULT NOT INDICATED Sodium Level 142 MEQ/L Potassium Level 4.3 MEQ/L Chloride Level 105 MEQ/L Carbon Dioxide Level 30.4 MEQ/L Anion Gap 7 MEQ/L Blood Urea Nitrogen 15 MG/DL Creatinine 0.92 MG/DL Estimat Glomerular Filtration 83 ML/MIN Rate Random Glucose 95 MG/DL Calcium Level 9.8 MG/DL Magnesium Level 2.0 MG/DL Total Bilirubin 0.7 MG/DL Aspartate Amino Transf 16 U/L (AST/SGOT) Alanine Aminotransferase 35 U/L (ALT/SGPT) Alkaline Phosphatase 76 U/L Ammonia 22 MCMOL/L Total Creatine Kinase 66 U/L Troponin I LESS THAN 0.02 NG/ML Total Protein 7.6 GM/DL Albumin 4.3 GM/DL Lipase 165 U/L Thyroid Stimulating Hormone 1.560 uIU/ML 3rd Gen Urine Opiates Screen NEG Urine Barbiturates Screen NEG Urine Amphetamines Screen NEG Urine Benzodiazepines Screen NEG Urine Cocaine Screen NEG Urine Cannabinoids Screen NEG Ethyl Alcohol Level LESS THAN 3 MG/DL MDM Supervised Visit with MARIAJOSE: Yes Narrative Course The history, exam, and medical decision-making in the associated midlevel provider note were completed with my assistance. I reviewed and agree with the findings presented. I attest that I had a [id number] encounter with the patient on the same day, and personally performed and documented my assessment and findings in the medical record. *My assessment and Findings: This is a 61-year-old male who per his has been acting strangely for several days. He's had less appetite, is getting confused and is having some trouble getting his words out. On exam he has an expressive aphasia. CT has evidence of old infarcts. His reports that he' s been told he has a clot in his carotid artery and that he needed surgery but they declined at the time. I suspect the patient has had an acute stroke in the past several days. I don't think is a TPA candidate as we don't have a discrete time of onset. Patient will be admitted for stroke evaluation. Diagnosis Primary Impression: Altered mental status Qualified Code: R41.82 - Altered mental status, unspecified altered mental status type Holly Alcocer MD Nov 27, 2016 18:42
[2016-11-27] MEDS ORDERED: GLUCAGON 1 MG/ML VIAL OTHER PRN (18:45)
[2016-11-27] MEDS ORDERED: SODIUM CHLORIDE 0.9% FLUSH 5 ML FLUSH IV FLUSH PRN (18:45)
[2016-11-27] MEDS ORDERED: DEXTROSE 50% IN WATER 50 ML VIAL(D50) IV PUSH PRN (18:45)
[2016-11-27] MEDS ORDERED: ENALAPRILAT 1.25 MG/ML VIAL IV PRN (18:45)
--- NOTE | 2016-11-27 19:33 | HHI.HP ---
HPI Service [facility] Hospitalists Primary Care Physician No Primary Care Physician Admission Diagnosis subacute stroke, altered mental status Diagnoses: Chief Complaint: weakness, wordfinding problems and memory impairment Travel History International Travel<30 Days: No Contact w/Intl Traveler <30 Da: No Traveled to Known Affected Are: No History of Present Illness Mr. Sabillon is 61 yo, who immigrated [facility] with history of CVA in August. At the time of the stroke, it was determined he had a "blocked artery in his neck" (right side) and surgery was advised. The pt declined the procedure. His reported residual effects of memory and word finding problems. Mrs. Sabillon reported she returned home this past Monday from a trip and was met at the airport by her . He was reported to be in his normal state of health. Decline was noted on as pt was reported to have increased physical weakness. Monday, he is reported to have decreased appetite and on Monday he did not eat and stayed in bed due to weakness. Today, as his condition did not improve, Mrs. Sabillon brought her into [facility] ED for evaluation of his condition. Upon interview, Mr. Sabillon reported he is not thinking well and "I can't say the right words." He said he was frustrated that "I can't think right." Review of Systems ROS Limitations: Altered Mental Status (Due to pt's cognitive status a reliable 10 pt ROS could not be obtained.) Past Family Social History Past Medical History Stroke in August 2016 Gout Past Surgical History Denied Reported Medications Pt is currently taking aspirin 325 mg po daily Ibuprofen 200 mg is taken for pain. Allergies: Coded Allergies: Lidocaine (Verified Allergy, Severe, Swelling, 11/27/16) Family History Mother is reported to have in her 80's with pancreatic cancer. Pt is an only child. Social History Pt reported smoking from an early age until August 2016; unknown pack year history. Pt reported having a daily beer until August 2016. No history of illicit or recreational drugs. Physical Exam Vital Signs Vital Signs Date Time Temp Pulse Resp B/P Pulse Ox O2 Delivery O2 Flow Rate FiO2 11/27/16 18:05 84 16 184/87 98 11/27/16 15:20 64 18 139/62 99 Room Air 11/27/16 14:27 75 17 181/99 97 Room Air 11/27/16 14:20 97.1 70 20 193/90 99 Room Air Physical Exam GENERAL: This is a well-nourished, well-developed patient, in no mild distress when speaking about his memory issues. SKIN: No rashes, ecchymoses. Verruca noted on left eye lid. Cool and dry. HEAD: Atraumatic. Normocephalic. No temporal or scalp tenderness. EYES: Pupils equal round and reactive. Extraocular motions intact. No scleral icterus. No injection or drainage. ENT: Nose without bleeding or purulent drainage. Throat without erythema or exudate. Uvula midline. Airway patent. NECK: Trachea midline. No lymphadenopathy. Supple and nontender. CARDIOVASCULAR: Regular rate and rhythm without murmurs, gallops, or rubs. RESPIRATORY: Clear to auscultation. Breath sounds equal bilaterally. No wheezes , rales, or rhonchi. GASTROINTESTINAL: Abdomen soft, non-tender, nondistended. No hepato- splenomegaly. No guarding. MUSCULOSKELETAL: Extremities without clubbing, cyanosis, or edema. No joint tenderness, effusion, or edema noted. No calf tenderness. NEUROLOGICAL: Awake and alert. Cranial nerves II through XII intact.Facial features were symmetrical. Motor and sensory grossly within normal limits. Five out of 5 muscle strength in all muscle groups. Speech was clear and fluent. Memory was poor. While he evidenced immediate recall for 3/3 items, he 0 /3 with delayed memory and could not understand cuing. Pt evidenced poor recall of personal history. Expressive and Receptive aphasia evident. Laboratory Laboratory Tests Test 11/27/16 14:45 White Blood Count 10.9 Red Blood Count 5.11 Hemoglobin 16.0 Hematocrit 47.8 Mean Corpuscular Volume 93.5 Mean Corpuscular Hemoglobin 31.3 Mean Corpuscular Hemoglobin 33.5 Concent Red Cell Distribution Width 14.7 Platelet Count 297 Mean Platelet Volume 9.2 Neutrophils (%) (Auto) 72.2 Lymphocytes (%) (Auto) 16.1 Monocytes (%) (Auto) 9.9 Eosinophils (%) (Auto) 1.2 Basophils (%) (Auto) 0.6 Neutrophils # (Auto) 7.9 Lymphocytes # (Auto) 1.8 Monocytes # (Auto) 1.1 Eosinophils # (Auto) 0.1 Basophils # (Auto) 0.1 CBC Comment DIFF FINAL Differential Comment Prothrombin Time 11.0 Prothromb Time International 1.0 Ratio Activated Partial 28.7 Thromboplast Time Urine Color YELLOW Urine Turbidity CLEAR Urine pH 5.5 Urine Specific [place] 1.029 Urine Protein TRACE Urine Glucose (UA) NEG Urine Ketones NEG Urine Occult Blood NEG Urine Nitrite NEG Urine Bilirubin NEG Urine Urobilinogen 2.0 Urine Leukocyte Esterase NEG Urine RBC 2 Urine WBC 1 Urine Squamous Epithelial <1 Cells Urine Mucus FEW Microscopic Urinalysis Comment CULT NOT INDICATED Sodium Level 142 Potassium Level 4.3 Chloride Level 105 Carbon Dioxide Level 30.4 Anion Gap 7 Blood Urea Nitrogen 15 Creatinine 0.92 Estimat Glomerular Filtration 83 Rate Random Glucose 95 Calcium Level 9.8 Magnesium Level 2.0 Total Bilirubin 0.7 Aspartate Amino Transf 16 (AST/SGOT) Alanine Aminotransferase 35 (ALT/SGPT) Alkaline Phosphatase 76 Ammonia 22 Total Creatine Kinase 66 Troponin I LESS THAN 0.02 Total Protein 7.6 Albumin 4.3 Lipase 165 Thyroid Stimulating Hormone 1.560 3rd Gen Urine Opiates Screen NEG Urine Barbiturates Screen NEG Urine Amphetamines Screen NEG Urine Benzodiazepines Screen NEG Urine Cocaine Screen NEG Urine Cannabinoids Screen NEG Ethyl Alcohol Level LESS THAN 3 Date/Time Procedure Status Source Growth 11/27/16 14:45 Urine Culture Received Urine Random Urine Pending 11/27/16 14:45 Aerobic Blood Culture Received Blood Peripheral Pending 11/27/16 14:45 Anaerobic Blood Culture Received Blood Peripheral Pending Result Diagram: 11/27/16 1445 11/27/16 1445 Imaging Last Impressions Head CT 11/27/16 143 Signed Impressions: Service Date/Time: Sunday, November 27, 2016 16:01 - CONCLUSION: Area of low density at the left frontal lobe and a small area at the anterior left basal ganglia likely representing sub acute areas of infarction. Uri Davis MD Chest X-Ray 11/27/16 143 Signed Impressions: Service Date/Time: Sunday, November 27, 2016 15:13 - CONCLUSION: 1. No acute findings. Vamshi Lowe MD Assessment and Plan Assessment and Plan Mr. Sabillon is 61 yo, who immigrated [facility] with history of CVA in August. At the time of the stroke, it was determined he had a "blocked artery in his neck" (right side) and surgery was advised. The pt declined the procedure. His reported residual effects of memory and word finding problems. Subacute ischemic infarct Expressive/Receptive Aphasia Decreased strength. Acute memory impairment -Admit to hospital -CTA -MRI -Carotid ultrasound -Echocardiogram -Telemetry -Plavix -Consults placed to Neurology, OT, PT, and SLT DVT prophylaxis Lovenox GI prophylaxis: Pepcid MDM Late entry, patient seen 11/27/16 at 6:30 PM 61/M with h/o of previous stroke in August with right-sided residuals including weakness and facial droop presented with new onset of difficulty with speech, disorientation "doesn't making sense" of several days. No new weakness, headache , chest pain, SOB. Denies seizure, fever, neck pain or urinary symptoms. Please see notes from PA for details. Not in distress RRR Clear BS No edema 4/5 RUE and RLE, mild expresssive and receptive aphasia, seems to be oriented to time, place and person but cannot express himself well. No sensory deficits. Negative meningeals. No dysdiadochokinesia. Mild R facial droop otherwise CN intact. CVA - CT head c/w recent left frontal lobe and basal ganglia infarct. Check MRI. Patient allegedly has R carotid stenosis for which CEA was advised however lost to f/u. Check CTA neck, TTE. Let BP autoregulate, consult neurology, keep on telemetry and DVT PPx. Continue Plavix and ASA. Screen for DM with HgbA1c. Case discussed with PA 11/27/16 at 655 PM Code Status Full Code Discussed Condition With Case discussed with pt, his , and ED staff. Physician Certification 2 Midnight Certification Type: Admission for Inpatient Services Order for Inpatient Services The services are ordered in accordance with Medicare regulations or non- Medicare payer requirements, as applicable. In the case of services not specified as inpatient-only, they are appropriately provided as inpatient services in accordance with the 2-midnight benchmark. Estimated LOS (days): 3 Three days is the estimated time the patient will need to remain in the hospital , assuming treatment plan goals are met and no additional complications. Post-Hospital Plan: Not yet determined Rusty Maier Jr. Nov 27, 2016 19:33 Gabriella Modi MD Nov 28, 2016 12:55
[2016-11-27] MEDS: ENOXAPARIN SODIUM 40 MG/0.4 ML SYRINGE SQ SCH (20:03)
[2016-11-27 20:09] VITALS: BP 173/86; PULSE 72; RESP 18; O2SAT 97
[2016-11-27] MEDS: INSULIN ASPART SUPPLEMENTAL SCALE SQ SCH (21:00)
[2016-11-27] MEDS: SODIUM CHLORIDE 0.9% FLUSH 5 ML FLUSH IV FLUSH SCH (21:03)
[2016-11-27 23:00] VITALS: BP 145/84; PULSE 75; RESP 18; TEMP 97.5; O2SAT 98
--- NOTE | 2016-11-27 23:42 | RADRPT ---
EXAM DATE/TIME: 11/27/2016 22:53 [facility] COMPARISON: No previous studies available for comparison. INDICATIONS : Cerebrovascular accident. MEDICAL HISTORY : CVA. Gout. Anticoagulant therapy. SURGICAL HISTORY : None. ENCOUNTER: Initial ACUITY: 1 day PAIN SCORE: 0/10 LOCATION: Bilateral neck PEAK SYSTOLIC VELOCITIES (cm/sec): ICA/CCA RATIO: Right: 6.2 ICA: Right: 410.6 CCA: Right: 66.1 Left: 66.8 ECA: Right: 221.7 Left: 142.1 VERTEBRAL: Right: 97.5 antegrade Left: 111.4 antegrade Elevated flow velocities and ICA/CCA ratios have been found to correlate with increased degrees of vessel stenosis, calculated as percentage of diameter relative to a normal segment of distal ICA/CCA FINDINGS: RIGHT CAROTID: Severe plaque identified. Elevated velocities and high-grade stenosis within the right internal carot id artery. LEFT CAROTID: No flow in the left internal carotid artery. VERTEBRAL ARTERIES: Antegrade flow is seen in both vertebral arteries. MISCELLANEOUS: None. CONCLUSION: 1. Occlusion left internal carotid artery. 2. High-grade stenosis of the right internal carotid artery, greater than 70% stenosis. Carotid CTA r ecommended. Kapil Bustillo MD on November 27, 2016 at 23:39 Board Certified Radiologist. This report was verified electronically.
[2016-11-28] VITALS (8 sets, daily range): BP systolic 142–190; BP diastolic 74–86; PULSE 63–78; RESP 18–20; TEMP 96–98.1; O2SAT 94–98
[2016-11-28] MEDS: INSULIN ASPART SUPPLEMENTAL SCALE SQ SCH ×4 (05:37→21:00)
[2016-11-28] MEDS: CLOPIDOGREL 75 MG TAB PO SCH (09:13)
[2016-11-28] MEDS: SODIUM CHLORIDE 0.9% FLUSH 5 ML FLUSH IV FLUSH SCH ×2 (09:16→21:00)
[2016-11-28 09:52] LABS: HDL CHOLESTEROL 35.3 MG/DL (40.0-60.0)
--- NOTE | 2016-11-28 10:22 | MB ---
cc: CLARA DELCID M.D. DATE OF CONSULTATION: 11/28/2016 HISTORY OF PRESENT ILLNESS The patient is a 61-year-old male, apparently from [facility], with a history of neurologic change. The patient reportedly had a stroke earlier this year in August. He was given Plavix but ran out of medication. He according to the records was found to have some significant carotid disease on the right and was offered surgery but declined. In the past couple of weeks or so he has been having some change in his behavior, having more difficulty with speech and language to the point that he was brought to the hospital yesterday. NEUROLOGICAL EXAMINATION On exam the patient has global aphasia. He has minimal comprehension and very mildly expressing himself. When I ask his age he was able to answer something and started saying 20s. Sometimes I had to request multiple times in order to get a simple command to be followed through. He has grossly normal gaze to the right and left. He has some right-sided weakness that appears to be mild. [id number] testing is grossly appropriate. The pupils were about the same size and reactive. His reflexes were 1+, plantar responses flexor. ASSESSMENT 1. Left frontal and left basal ganglia area of what appears to be subacute stroke. 2. History of left internal carotid artery occlusion and high-grade stenosis on the right. He may have ran out of his medications, presumably aspirin, Crestor and Plavix. Reportedly he was offered right carotid surgery earlier this year when he had a stroke. PLAN/RECOMMENDATIONS I will order a CT angio, continue Plavix and baby aspirin. The lipid profile has been checked and the LDL is 154. He needs to be treated aggressively with a statin. The goal will be an LDL below 60 for this patient. An MRI of brain will be requested as well. Thank you for asking us to assist in his care. I will follow him with you. Clara Delcid MD OFC/BT /10:04 AM /10:19 AM
[2016-11-28] MEDS ORDERED: SODIUM CHLOR 0.9% 1000 ML INJ 1,000 ML IV ONE (11:15)
--- NOTE | 2016-11-28 11:18 | HHI.PR ---
Subjective Remarks f/u; CVA in no acute distress. has right sided weakness.' at the bedside. Objective Vitals Vital Signs Date Time Temp Pulse Resp B/P Pulse Ox O2 Delivery O2 Flow Rate FiO2 11/28/16 08:27 97.8 65 20 142/82 97 11/28/16 04:40 97.0 70 19 158/74 94 11/27/16 23:00 97.5 75 18 145/84 98 11/27/16 20:09 72 18 173/86 97 Room Air 11/27/16 18:05 84 16 184/87 98 11/27/16 15:20 64 18 139/62 99 Room Air 11/27/16 14:27 75 17 181/99 97 Room Air 11/27/16 14:20 97.1 70 20 193/90 99 Room Air I/O 11/27/16 11/27/16 11/27/16 11/28/16 11/28/16 11/28/16 07:00 15:00 23:00 07:00 15:00 23:00 Intake Total 0 ml Output Total 0 ml Balance 0 ml Intake Oral 0 ml Output Urine Total 0 ml # Bowel Movements 0 Result Diagram: 11/27/16 1445 11/27/16 1445 Imaging Last Impressions Head CT 11/27/16 1432 Signed Impressions: Service Date/Time: Sunday, November 27, 2016 16:01 - CONCLUSION: Area of low density at the left frontal lobe and a small area at the anterior left basal ganglia likely representing sub acute areas of infarction. Uri Davis MD Chest X-Ray 11/27/16 1432 Signed Impressions: Service Date/Time: Sunday, November 27, 2016 15:13 - CONCLUSION: 1. No acute findings. Vamshi Lowe MD Carotid Artery Ultrasound 11/27/16 0000 Signed Impressions: Service Date/Time: Sunday, November 27, 2016 22:53 - CONCLUSION: 1. Occlusion left internal carotid artery. 2. High-grade stenosis of the right internal carotid artery, greater than 70%% stenosis. Carotid CTA recommended. Kapil Bustillo MD Objective Remarks GENERAL: This is a well-nourished, well-developed patient, in no apparent distress. CARDIOVASCULAR: Regular rate and regular rhythm without murmurs, gallops, or rubs. RESPIRATORY: Clear to auscultation. Breath sounds equal bilaterally. No wheezes , rales, or rhonchi. GASTROINTESTINAL: Abdomen soft, non-tender, nondistended. Normal, active bowel sounds MUSCULOSKELETAL: Extremities without clubbing, cyanosis, or edema. NEURO: awake, alert with right sided weakness. Procedures none Medications and IVs Current Medications Sodium Chloride (NS 1000 ml Inj) 1,000 ml @ 1,000 mls/hr Q1H IV Last administered on 11/27/16 14:32; Start 11/27/16 at 14:32; Stop 11/27/16 at 15:31; Status DC IV Flush (NS Flush) 2 ml BID IV FLUSH Last administered on 11/28/16 09:16; Start 11/27/16 at 21:00 IV Flush (NS Flush) 2 ml UNSCH PRN IV FLUSH FLUSH AFTER USING IV ACCESS; Start 11/27/16 at 18:45 Enalaprilat (Vasotec Inj) 1.25 mg Q4H PRN IV For SBP > 220 or DBP > 120; Start 11/27/16 at 18:45 Clopidogrel Bisulfate (Plavix) 75 mg DAILY PO Last administered on 11/28/16 09: 13; Start 11/28/16 at 09:00 Insulin Aspart (NovoLOG SUPPLEMENTAL SCALE) 1 ACHS SQ ; Start 11/27/16 at 21:00 Dextrose (D50w (Vial) Inj) 50 ml UNSCH PRN IV PUSH HYPOGLYCEMIA-SEE COMMENTS; Start 11/27/16 at 18:45 Glucagon (Glucagon Inj) 1 mg UNSCH PRN OTHER HYPOGLYCEMIA-SEE COMMENTS; Start 11/27/16 at 18:45 Enoxaparin Sodium (Lovenox Inj) 40 mg Q24H SQ Last administered on 11/27/16 20: 03; Start 11/27/16 at 20:00 Aspirin (Aspirin Chew) 81 mg DAILY PO ; Start 11/28/16 at 10:30 A/P Assessment and Plan A/P Subacute ischemic infarct Acute memory impairment CT head with subacute infarct left frontal lobe and left basal ganglia carotid doppler with occlusion left ICA and high grade stenosis right ICA continue aspirin and plavix- will add statin echo, MRI/MRI brain/CTA neck pending. will consider vascular surgery evaluation pending the result of imaging studies consulted PT/OT/ST neurology consult appreciated. DVT prophylaxis Lovenox GI prophylaxis: Brady Jeffers MD Nov 28, 2016 11:18
[2016-11-28] MEDS: ASPIRIN 81 MG CHEW TAB PO SCH (12:12)
[2016-11-28] MEDS ORDERED: IOHEXOL 350 MG/ML 10 ML VIAL (for RAD DIAG) IV ONE (14:04)
--- NOTE | 2016-11-28 14:09 | EKG ---
Date Performed: 11/27/2016 Time Performed: 15:13:24 PTAGE: 61 years EKG: Sinus rhythm WITH MARKED SINUS ARRHYTHMIA WITH FIRST DEGREE AV BLOCK RIGHT BUNDLE BRANCH BLOCK ABNORMAL ECG NO PREVIOUS TRACING DOCTOR: Nacho Kam Interpretating Date/Time 11/28/2016 14:08:09
--- NOTE | 2016-11-28 14:43 | RADRPT ---
EXAM DATE/TIME: 11/28/2016 13:46 [facility] COMPARISON: CT BRAIN W/O CONTRAST, November 27, 2016, 16:01. CTA BRAIN W 3D RECON, November 28, 2016, 13:46. INDICATIONS : History of stroke alert; generalized weakness. IV CONTRAST: 80 cc Omnipaque 350 (iohexol) IV RADIATION DOSE: 28.59 CTDIvol (mGy) ; Combined studies MEDICAL HISTORY : Stroke. Hypertension. SURGICAL HISTORY : None. ENCOUNTER: Initial ACUITY: 1 day PAIN SCALE: 0/10 LOCATION: Bilateral neck Elevated flow velocities and ICA/CCA ratios have been found to correlate with increased degrees of vessel stenosis, calculated as percentage of diameter relative to a normal segment of distal ICA/CCA. TECHNIQUE: Volumetric scanning was performed using a multirow detector CT scanner. The data was post processed with a variety of visualization algorithms including full-volume maximum intensity projection, multip lanar sliding thin-slab reformation, curved-planar reformation, and surface-rendering techniques. Us ing automated exposure control and adjustment of the mA and/or kV according to patient size, radiatio n dose was kept as low as reasonably achievable to obtain optimal diagnostic quality images. DICOM f ormat image data is available electronically for review and comparison. FINDINGS: AORTIC ARCH: There is a three-vessel origin of the great vessels from the aorta. No evidence of ostial narrowing. RIGHT CAROTID: There is high grade stenosis of the right internal carotid with extensive hard and soft plaque extend ing 2 cm up from the bifurcation.. LEFT CAROTID: The left internal carotid is occluded with large amount of calcific plaque. The external carotid is small and diminutive. VERTEBRALS: The left vertebral is dominant.. No stenotic lesions are seen. CONCLUSION: High-grade to critical stenosis right internal carotid. Occluded left internal carot id. Salty Stacy MD FACR on November 28, 2016 at 14:37 Board Certified Radiologist. This report was verified electronically.
--- NOTE | 2016-11-28 15:43 | RADRPT ---
EXAM DATE/TIME: 11/28/2016 13:46 [facility] COMPARISON: CT BRAIN W/O CONTRAST, November 27, 2016, 16:01. INDICATIONS : History of stroke alert; generalized weakness. IV CONTRAST: 80 cc Omnipaque 350 (iohexol) IV ; Cumulative dose for multiple exams. RADIATION DOSE: 28.59 CTDIvol (mGy) ; Combined studies MEDICAL HISTORY : Hypertension. Stroke SURGICAL HISTORY : None. ENCOUNTER: Initial ACUITY: 1 day PAIN SCALE: 0/10 LOCATION: cranial TECHNIQUE: Volumetric scanning was performed using a multi-row detector CT scanner. The data was post processed with a variety of visualization algorithms including full volume maximum intensity projection, multi -planar sliding thin slab reformation, curved planar reformation, and surface rendering techniques. Using automated exposure control and adjustment of the mA and/or kV according to patient size, radiat ion dose was kept as low as reasonably achievable to obtain optimal diagnostic quality images. DICO M format image data is available electronically for review and comparison. FINDINGS: There is complete short segment occlusion of both internal carotid arteries with reconstitution 2-3 c m more distally. Please see CT angiography of the carotids for urther discussion. There is asymmetry involving the distal several arteries bilaterally smaller on the left than on the right with severe d isease involving the cavernous carotid arteries bilaterally. No intracranial stenosis is identified. Examination of the posterior fossa demonstrates a dominant left vertebral artery with patent dictatin g arteries bilaterally. CONCLUSION: 1. Findings a short segment occlusion of both proximal internal carotid arteries with reconstitution and likely retrograde filling bilaterally. 2. There significant disease high-grade stenosis involving the cavernous carotid arteries bilaterally . 3. No intracranial thrombosis or stenosis is identified. Slim Snow MD on November 28, 2016 at 14:16 Board Certified Radiologist. This report was verified electronically.
[2016-11-28 17:07] LABS: HEMOGLOBIN A1a 0.9 %; HEMOGLOBIN A1b 2.2 %; HEMOGLOBIN Ao 85.3 %; HEMOGLOBIN LA1C 1.4 %; HEMOGLOBIN P3 3.8 %
--- NOTE | 2016-11-28 18:36 | RADRPT ---
EXAM DATE/TIME: 11/28/2016 17:22 [facility] COMPARISON: CTA BRAIN W 3D RECON, November 28, 2016, 13:46. CTA CAROTID ARTERIES W 3D RECON, November 28, 2016, 13:46. MRI BRAIN W/O CONTRAST, November 28, 2016, 17:22. INDICATIONS : CVA. MEDICAL HISTORY : Hypertension. Stroke Gout SURGICAL HISTORY : None. ENCOUNTER: Initial ACUITY: 1 day PAIN SCORE: 2/10 LOCATION: Bilateral cranial Please note a normal MRA of the brain does not entirely exclude the possibility of a small aneurysm, nor the possibility of distal intracranial vessel disease. TECHNIQUE: 3D time of flight MRA was performed. Source images, multiplanar STS MIP, and 3D volume MIP reconstru ctions were reviewed. FINDINGS: MRI had demonstrated acute infarction in the left anterior mid MCA distribution. CTA had demonstrate d an occluded left internal carotid artery and a high-grade to critical stenosis in the right interna l carotid artery. Intracranial CTA earlier today and demonstrated high-grade stenosis in the caverno us carotid arteries bilaterally. The MRA performed with [id number] tacking demonstrates absent flow in the left internal carotid a rtery. There is minimal flow seen in the clinoid portion, insufficient to evaluate degree of stenosi s. On the right side, there is evidence of a greater than 60% stenosis in the anterior cavernous por tion of the internal carotid artery. There is absent flow in the A1 segment on the right side (CTA h ad demonstrated string-like flow in this segment). There is flow present in the left A1 and M1 segme nt, diminished. Some flow is seen in the anterior communicating artery and there is symmetric flow i n the frontal portion of the anterior carotid arteries bilaterally. There is asymmetric amount of fl ow in the left MCA vessels when compared to the right side, some but diminished flow is seen in the s ylvian branches on the left. The basilar artery is normal in dimension. The basilar flow is left vertebral dominant with intact b ut narrowed right vertebral artery. There is absent flow in the right P1 segment with some diminishe d flow present in the remainder of the posterior communicating on the right side, receiving its suppl y via the posterior communicating artery. The left posterior cerebral artery is normal in dimension. The posterior cerebellar arteries are symmetric with the right. CONCLUSION: 1. Absent flow left internal carotid artery with reconstitution of flow in the cavernous portion, pro bably partially from anterior communicating artery and partially from posterior communicating artery. 2. Intact but diminished flow in the left middle cerebral artery vessels. 3. Absent flow in the right P1 segment with reconstitution in the P2 segment via the PCOM. 4. No flow seen in the right A1 segment on the MRA, but string-like flow was discernible on a CTA bra in performed earlier today. Toby Gonzalez MD on November 28, 2016 at 18:23 Board Certified Radiologist. This report was verified electronically.
--- NOTE | 2016-11-28 18:42 | RADRPT ---
EXAM DATE/TIME: 11/28/2016 17:22 [facility] COMPARISON: MRA BRAIN W/O CONTRAST, November 28, 2016, 17:22. CTA CAROTID ARTERIES W 3D RECON, November 28, 2016, 13:46. CTA BRAIN W 3D RECON, November 28, 2016, 13:46. US CAROTID ARTERIES, November 27, 2016, 22:53. CT BRAIN W /O CONTRAST, November 27, 2016, 16:01. INDICATIONS : CVA. MEDICAL HISTORY : Hypertension. Stroke Gout. SURGICAL HISTORY : None. ENCOUNTER: Initial ACUITY: 1 day PAIN SCORE: 2/10 LOCATION: Bilateral cranial TECHNIQUE: Multiplanar, multisequence MRI of the brain was performed without contrast. FINDINGS: Noncontrast CT earlier today demonstrated hypodensities in the left frontal and left basal ganglia ch aracteristic of acute or subacute nonhemorrhagic infarction. The MRI examination is abnormal demonst rating restricted diffusion in the anterior left striatum, scattered areas in the left mid convexity frontal parietal meyer matter, and prominent confluent cortical restricted diffusion involving the fro ntal and mid parietal cortex from high to highest convexity, sparing the paramedial cortex.. The are as of involvement, as assessed by diffusion-weighted images, is greater in size than the CT abnormali ties. No evidence of cerebral edema. The ventricles and sulci are mildly prominent. No evidence of midline shift. Scattered areas of nonspecific T2 prolongation in the supratentorial white matter of the salomon radiata and centrum semiovale suggesting ischemic demyelination. No evidence of acute or subacute blood products in the left frontal or temporal region. The posterior fossa structures are grossly intact. No restricted diffusion in the posterior fossa. Visualized structures the orbits and paranasal sinuses unremarkable. CONCLUSION: Acute nonhemorrhagic infarctions involving the anterior and mid left MCA distribution, including fron david and parietal cortex, white matter, and anterior basal ganglia. No evidence of mass effect or sig nificant cerebral edema. Toby Gonzalez MD on November 28, 2016 at 18:34 Board Certified Radiologist. This report was verified electronically.
[2016-11-28] MEDS: ATORVASTATIN 40 MG TAB PO SCH (21:12)
[2016-11-28] MEDS: ENOXAPARIN SODIUM 40 MG/0.4 ML SYRINGE SQ SCH (21:12)
[2016-11-29] VITALS (7 sets, daily range): BP systolic 132–183; BP diastolic 78–88; PULSE 64–78; RESP 18–20; TEMP 97–98.9; O2SAT 95–97
[2016-11-29] MEDS: INSULIN ASPART SUPPLEMENTAL SCALE SQ SCH ×4 (06:17→20:26)
[2016-11-29] MEDS: CLOPIDOGREL 75 MG TAB PO SCH (08:30)
[2016-11-29] MEDS: ASPIRIN 81 MG CHEW TAB PO SCH (08:30)
[2016-11-29] MEDS: SODIUM CHLORIDE 0.9% FLUSH 5 ML FLUSH IV FLUSH SCH ×2 (08:30→20:26)
--- NOTE | 2016-11-29 12:02 | HHI.PR ---
Review/Management Daily Summary 11/29 mri acute left hemisphere infarcts very severe multilevel cervical and intracranial vascular dx imaging studies discussed with neuro rad yest tristian Snow and Micky Stacy pt is stable neuro exam, aphasia and mild right hemiparesis ct angio results from august 2016 showed severe bilateral ica dx but at that time amenable to surgery now I doubt of any vascular surgery possibilities but will obtain opinion asa plavix and statun Subjective Subjective Comments at bedside with records from august Active Medications Current Medications Medications (Trade) Dose Ordered Sig/Con Route Start Time Stop Time Status Last Admin (NS Flush) 2 ml BID IV FLUSH 11/27/16 21:00 11/29/16 08:30 (NS Flush) 2 ml UNSCH PRN IV FLUSH 11/27/16 18:45 (Vasotec Inj) 1.25 mg Q4H PRN IV 11/27/16 18:45 (Plavix) 75 mg DAILY PO 11/28/16 09:00 11/29/16 08:30 (NovoLOG SUPPLEMENTAL SCALE) 1 ACHS SQ 11/27/16 21:00 (D50w (Vial) Inj) 50 ml UNSCH PRN IV PUSH 11/27/16 18:45 (Glucagon Inj) 1 mg UNSCH PRN OTHER 11/27/16 18:45 (Lovenox Inj) 40 mg Q24H SQ 11/27/16 20:00 11/28/16 21:12 (Aspirin Chew) 81 mg DAILY PO 11/28/16 10:30 11/29/16 08:30 (Lipitor) 40 mg HS PO 11/28/16 21:00 11/28/16 21:12 Allergies Allergies Coded Allergies Lidocaine (Verified Allergy, Severe, Swelling, 11/27/16) Exam I&O / VS 11/28/16 11/28/16 11/29/16 15:00 23:00 07:00 Intake Total 480 ml 720 ml Output Total 375 ml 100 ml Balance 480 ml -375 ml 620 ml Intake Oral 480 ml IV Total 720 ml Output Urine Total 375 ml 100 ml # Voids 1 1 # Bowel Movements 0 Vital Signs Date Time Temp Pulse Resp B/P Pulse Ox O2 Delivery O2 Flow Rate FiO2 11/29/16 07:56 97.2 64 20 182/88 97 11/29/16 04:49 97.0 69 18 132/84 96 11/29/16 00:42 97.9 65 18 138/82 96 11/28/16 20:23 97.4 70 18 144/86 96 11/28/16 20:08 97 21 11/28/16 20:00 78 11/28/16 17:19 98.1 69 20 147/84 97 11/28/16 12:00 96.0 63 20 190/86 96 Objective Radiology Results Last 48 hours Impressions Neck CTA 11/28/16 0000 Signed Impressions: Service Date/Time: Monday, November 28, 2016 13:46 - CONCLUSION: High-grade to critical stenosis right internal carotid. Occluded left internal carotid. Salty Stacy MD FACR Head Magnetic Resonance Angiography 11/28/16 0000 Signed Impressions: Service Date/Time: Monday, November 28, 2016 17:22 - CONCLUSION: 1. Absent flow left internal carotid artery with reconstitution of flow in the cavernous portion, probably partially from anterior communicating artery and partially from posterior communicating artery. 2. Intact but diminished flow in the left middle cerebral artery vessels. 3. Absent flow in the right P1 segment with reconstitution in the P2 segment via the PCOM. 4. No flow seen in the right A1 segment on the MRA, but string-like flow was discernible on a CTA brain performed earlier today. Toby Gonzalez MD Head CTA 11/28/16 0000 Signed Impressions: Service Date/Time: Monday, November 28, 2016 13:46 - CONCLUSION: 1. Findings a short segment occlusion of both proximal internal carotid arteries with reconstitution and likely retrograde filling bilaterally. 2. There significant disease high-grade stenosis involving the cavernous carotid arteries bilaterally. 3. No intracranial thrombosis or stenosis is identified. Slim Snow MD Brain MRI 11/28/16 0000 Signed Impressions: Service Date/Time: Monday, November 28, 2016 17:22 - CONCLUSION: Acute nonhemorrhagic infarctions involving the anterior and mid left MCA distribution , including frontal and parietal cortex, white matter, and anterior basal ganglia. No evidence of mass effect or significant cerebral edema. Toby Gonzalez MD Head CT 11/27/16 1432 Signed Impressions: Service Date/Time: Sunday, November 27, 2016 16:01 - CONCLUSION: Area of low density at the left frontal lobe and a small area at the anterior left basal ganglia likely representing sub acute areas of infarction. rUi Davis MD Chest X-Ray 11/27/16 1432 Signed Impressions: Service Date/Time: Sunday, November 27, 2016 15:13 - CONCLUSION: 1. No acute findings. Vamshi Lowe MD Micro and Labs Date/Time Procedure Status Source Growth 11/27/16 14:45 Urine Culture - Final Complete Urine Random Urine NO GROWTH IN 48 HOURS. 11/27/16 14:45 Aerobic Blood Culture - Preliminary Resulted Blood Peripheral NO GROWTH IN 2 DAYS 11/27/16 14:45 Anaerobic Blood Culture - Preliminary Resulted Blood Peripheral NO GROWTH IN 2 DAYS Denice Delcid MD Nov 29, 2016 12:02
--- NOTE | 2016-11-29 13:27 | HHI.PR ---
Subjective Remarks Follow-up acute left hemispheric infarct 11/29/16-patient seen and examined, global aphasia, right sided weakness. by the bedside and discussed about neck MRA report Objective Vitals Vital Signs Date Time Temp Pulse Resp B/P Pulse Ox O2 Delivery O2 Flow Rate FiO2 11/29/16 11:55 98.5 72 20 171/80 97 11/29/16 07:56 97.2 64 20 182/88 97 11/29/16 04:49 97.0 69 18 132/84 96 11/29/16 00:42 97.9 65 18 138/82 96 11/28/16 20:23 97.4 70 18 144/86 96 11/28/16 20:08 97 21 11/28/16 20:00 78 11/28/16 17:19 98.1 69 20 147/84 97 I/O 11/28/16 11/28/16 11/28/16 11/29/16 11/29/16 11/29/16 07:00 15:00 23:00 07:00 15:00 23:00 Intake Total 0 ml 480 ml 720 ml Output Total 0 ml 375 ml 100 ml Balance 0 ml 480 ml -375 ml 620 ml Intake Oral 0 ml 480 ml IV Total 720 ml Output Urine Total 0 ml 375 ml 100 ml # Voids 1 1 # Bowel Movements 0 0 Result Diagram: 11/27/16 1445 11/27/16 1445 Imaging Last Impressions Neck CTA 11/28/16 0000 Signed Impressions: Service Date/Time: Monday, November 28, 2016 13:46 - CONCLUSION: High-grade to critical stenosis right internal carotid. Occluded left internal carotid. Salty Stacy MD FACR Head Magnetic Resonance Angiography 11/28/16 0000 Signed Impressions: Service Date/Time: Monday, November 28, 2016 17:22 - CONCLUSION: 1. Absent flow left internal carotid artery with reconstitution of flow in the cavernous portion, probably partially from anterior communicating artery and partially from posterior communicating artery. 2. Intact but diminished flow in the left middle cerebral artery vessels. 3. Absent flow in the right P1 segment with reconstitution in the P2 segment via the PCOM. 4. No flow seen in the right A1 segment on the MRA, but string-like flow was discernible on a CTA brain performed earlier today. Toby Gonzalez MD Head CTA 11/28/16 0000 Signed Impressions: Service Date/Time: Monday, November 28, 2016 13:46 - CONCLUSION: 1. Findings a short segment occlusion of both proximal internal carotid arteries with reconstitution and likely retrograde filling bilaterally. 2. There significant disease high-grade stenosis involving the cavernous carotid arteries bilaterally. 3. No intracranial thrombosis or stenosis is identified. Slim Snow MD Brain MRI 11/28/16 0000 Signed Impressions: Service Date/Time: Monday, November 28, 2016 17:22 - CONCLUSION: Acute nonhemorrhagic infarctions involving the anterior and mid left MCA distribution , including frontal and parietal cortex, white matter, and anterior basal ganglia. No evidence of mass effect or significant cerebral edema. Toby Gonzalez MD Head CT 11/27/162 Signed Impressions: Service Date/Time: Sunday, November 27, 2016 16:01 - CONCLUSION: Area of low density at the left frontal lobe and a small area at the anterior left basal ganglia likely representing sub acute areas of infarction. Uri Davis MD Chest X-Ray 11/27/161431 Signed Impressions: Service Date/Time: Sunday, November 27, 2016 15:13 - CONCLUSION: 1. No acute findings. Vamshi Lowe MD Carotid Artery Ultrasound 11/27/16 0000 Signed Impressions: Service Date/Time: Sunday, November 27, 2016 22:53 - CONCLUSION: 1. Occlusion left internal carotid artery. 2. High-grade stenosis of the right internal carotid artery, greater than 70%% stenosis. Carotid CTA recommended. Kapil Bustillo MD Objective Remarks GENERAL: NAD with global aphasia SKIN: Warm and dry. HEAD: Normocephalic. EYES: No scleral icterus. No injection or drainage. NECK: Supple, trachea midline. No JVD or lymphadenopathy. CARDIOVASCULAR: Regular rate and rhythm without murmurs, gallops, or rubs. RESPIRATORY: Breath sounds equal bilaterally. No accessory muscle use. GASTROINTESTINAL: Abdomen soft, non-tender, nondistended. MUSCULOSKELETAL: No cyanosis, or edema. Right-sided weakness BACK: Nontender without obvious deformity. No CVA tenderness. Procedures none A/P Problem List: (1) Arterial ischemic stroke, MCA (middle cerebral artery), left, acute ICD Code: I63.512 Status: Acute (2) Stenosis of both internal carotid arteries ICD Code: I65.23 Status: Acute Assessment and Plan 61-year-old man with Acute left hemispheric infarct Continue treatment per stroke protocol Permissive hypertension and treat when necessary Continue with Plavix, aspirin, statin PT/OT/speech therapy consultation Appreciate input from neurology Brain MRI/MRA/CT noted 2-D echo pending High-grade stenosis right ICA, completed included left ICA Consult vascular surgery DVT prophylaxis Lovenox GI prophylaxis: Kapil Fernandez MD Nov 29, 2016 13:27
--- NOTE | 2016-11-29 19:48 | PD.CAR.PN ---
CVT Progress Note Subjective/Hospital Course: Patient seen full consult dictated This gentleman has a left hemispheric stroke with the total occlusion left internal carotid artery. Once occluded there is no surgery to be done. In addition patient has a high grade stenosis of the right internal carotid artery which obviously has to be attended. Because patient had acute stroke I would wait at least 10 days to 2 weeks to attend the right carotid so patient can be discharged from my point at any time on Plavix and aspirin and I will bring him back in about 10 days for right internal carotid endarterectomy My office will make arrangements for the same Thanks J Objective: Vital Signs Date Time Temp Pulse Resp B/P Pulse Ox O2 Delivery O2 Flow Rate FiO2 11/29/16 16:12 97.8 78 20 170/78 95 11/29/16 11:55 98.5 72 20 171/80 97 11/29/16 07:56 97.2 64 20 182/88 97 11/29/16 04:49 97.0 69 18 132/84 96 11/29/16 00:42 97.9 65 18 138/82 96 11/28/16 20:23 97.4 70 18 144/86 96 11/28/16 20:08 97 21 11/28/16 20:00 78 Result Diagram: 11/27/16 1445 11/27/16 1445 Unruly Mccrary MD Nov 29, 2016 19:48
--- NOTE | 2016-11-29 20:06 | MB ---
cc: UNRULY DONNELLY DATE OF CONSULTATION: 11/29/2016 REASON FOR CONSULTATION: Left hemispheric stroke, occlusion left internal carotid artery. Critical stenosis of right carotid artery and right hemiparesis, global aphasia. HISTORY OF PRESENT DISEASE: This 61-year-old male presents to the emergency room with left hemispheric stroke. The patient is now on the floor and he has above noted symptoms. Question arises about the surgical remedy. It should be noted that the patient first had a stroke in August of this year and was admitted to another hospital where he was diagnosed with bilateral carotid stenosis, critical in the 88% range. In the meantime the patient did not have insurance so he ran out of his meds. He did not want to go back to the hospital, ended up now having a second stroke. At the time he was recommended to have a left internal carotid artery endarterectomy followed by the right. In addition, the patient was placed on Plavix. He ran out of Plavix and money for it, and here he is. PAST MEDICAL HISTORY: Above noted stroke, now repeated. PAST SURGICAL HISTORY: None. MEDICATIONS Patient used to be on Plavix. ALLERGIES: Lidocaine SOCIAL HISTORY The patient smokes most of his adult life about a pack a day, stopped in August of this year after the first stroke. He drinks socially. PHYSICAL EXAMINATION: Reveals a pleasant 61 year-old gentleman in no acute distress. HEENT: Normocephalic. No trauma to the head. Pupils equal and reactive. Extraocular muscles intact. Mild symmetry of the face but it would not be barely noticeable had I not known the patient had a stroke. Neck: Bilateral low carotid pulses, carotid artery is obviously open. The patient does have a right-sided bruit. Heart: Regular rhythm. Chest: Bilateral breath sounds decreased over both lung almaguer consistent with some mild emphysema. Abdomen: Soft. Active bowel sounds. No rebound, no guarding, no masses. Extremities: Grossly within normal limits with good proximal and distal pulses. No acute vascular deficit. Back: Normal. Neurologic: Patient has global aphasia with very few words coming out. He is very frustrated by same. However, his understanding is not much better compared to what it was apparently yesterday. C2 to 12 are intact. Motoric activity, the patient has weakness of the right arm 3 to 5, on the left side 5 to 5. Legs are normal. IMPRESSION AND RECOMMENDATION: Patient with a left hemispheric stroke and occlusion of left carotid artery. At this point there is no surgery to be done on the left side. This is occluded. It is gone and cannot be fixed. On the right side, however, the patient has critical stenosis of about 80%. This has to be attended. The patient is now in acute phase of the stroke and I should give him at least ten days to recover from this, and then we will proceed with a right carotid endarterectomy. In the past we used to wait 6-8 weeks until maximum functional recovery was achieved, this turned out to be a bad policy and bad approach for a lot of patients would have another stroke and then the game was over. At this point the recommendation is to wait about 2-3 weeks and then go ahead with surgery if there is any surgery to be done. based on the above, from my point the patient can be discharged on Plavix and aspirin, and I will bring him back in about ten days to two weeks for the right carotid endarterectomy. Thank you for the referral. Critical care time: 40 minutes. Unruly BURNS /7:47 PM /7:55 PM MICHAEL
[2016-11-29] MEDS: ATORVASTATIN 40 MG TAB PO SCH (20:25)
[2016-11-29] MEDS: ENOXAPARIN SODIUM 40 MG/0.4 ML SYRINGE SQ SCH (20:26)
[2016-11-30] VITALS (7 sets, daily range): BP systolic 142–161; BP diastolic 73–82; PULSE 61–86; RESP 17–18; TEMP 96.2–98.2; O2SAT 93–99
[2016-11-30] MEDS: INSULIN ASPART SUPPLEMENTAL SCALE SQ SCH (06:40)
[2016-11-30] MEDS: CLOPIDOGREL 75 MG TAB PO SCH (08:17)
[2016-11-30] MEDS: ASPIRIN 81 MG CHEW TAB PO SCH (08:17)
[2016-11-30] MEDS: SODIUM CHLORIDE 0.9% FLUSH 5 ML FLUSH IV FLUSH SCH ×2 (08:17→21:59)
[2016-11-30] MEDS: amLODIPine BESYLATE 5 MG TAB PO SCH (08:50)
--- NOTE | 2016-11-30 09:55 | HHI.PR ---
Subjective Remarks Follow-up acute left hemispheric infarct 11/29/16-patient seen and examined, global aphasia, right sided weakness. by the bedside and discussed about neck MRA report 11/30/16-patient seen and examined, still with some right-sided weakness . Patient alert to place, date and place of , presence of . Objective Vitals Vital Signs Date Time Temp Pulse Resp B/P Pulse Ox O2 Delivery O2 Flow Rate FiO2 11/30/16 08:00 96.7 71 17 153/82 95 11/30/16 04:00 97.0 61 18 142/79 93 11/30/16 00:00 98.2 70 18 161/78 99 11/29/16 20:00 98.9 72 18 183/85 97 11/29/16 19:38 66 11/29/16 16:12 97.8 78 20 170/78 95 11/29/16 11:55 98.5 72 20 171/80 97 I/O 11/29/16 11/29/16 11/29/16 11/30/16 11/30/16 11/30/16 07:00 15:00 23:00 07:00 15:00 23:00 Intake Total 720 ml 240 ml Output Total 100 ml Balance 620 ml 240 ml Intake Oral 240 ml IV Total 720 ml Output Urine Total 100 ml # Voids 1 8 Result Diagram: 11/27/16 1445 11/27/16 1445 Imaging Last Impressions Neck CTA 11/28/16 0000 Signed Impressions: Service Date/Time: Monday, November 28, 2016 13:46 - CONCLUSION: High-grade to critical stenosis right internal carotid. Occluded left internal carotid. Salty Stacy MD FACR Head Magnetic Resonance Angiography 11/28/16 0000 Signed Impressions: Service Date/Time: Monday, November 28, 2016 17:22 - CONCLUSION: 1. Absent flow left internal carotid artery with reconstitution of flow in the cavernous portion, probably partially from anterior communicating artery and partially from posterior communicating artery. 2. Intact but diminished flow in the left middle cerebral artery vessels. 3. Absent flow in the right P1 segment with reconstitution in the P2 segment via the PCOM. 4. No flow seen in the right A1 segment on the MRA, but string-like flow was discernible on a CTA brain performed earlier today. Toby Gonzalez MD Head CTA 11/28/16 0000 Signed Impressions: Service Date/Time: Monday, November 28, 2016 13:46 - CONCLUSION: 1. Findings a short segment occlusion of both proximal internal carotid arteries with reconstitution and likely retrograde filling bilaterally. 2. There significant disease high-grade stenosis involving the cavernous carotid arteries bilaterally. 3. No intracranial thrombosis or stenosis is identified. Slim Snow MD Brain MRI 11/28/16 0000 Signed Impressions: Service Date/Time: Monday, November 28, 2016 17:22 - CONCLUSION: Acute nonhemorrhagic infarctions involving the anterior and mid left MCA distribution , including frontal and parietal cortex, white matter, and anterior basal ganglia. No evidence of mass effect or significant cerebral edema. Toby Gonzalez MD Head CT [id number]/27/[id number] Signed Impressions: Service Date/Time: Sunday, November 27, 2016 16:01 - CONCLUSION: Area of low density at the left frontal lobe and a small area at the anterior left basal ganglia likely representing sub acute areas of infarction. Uri Davis MD Chest X-Ray [id number] Signed Impressions: Service Date/Time: Sunday, November 27, 2016 15:13 - CONCLUSION: 1. No acute findings. Vamshi Lowe MD Carotid Artery Ultrasound 11/27/16 0000 Signed Impressions: Service Date/Time: Sunday, November 27, 2016 22:53 - CONCLUSION: 1. Occlusion left internal carotid artery. 2. High-grade stenosis of the right internal carotid artery, greater than 70%% stenosis. Carotid CTA recommended. Kapil Bustillo MD Objective Remarks GENERAL: NAD with global aphasia SKIN: Warm and dry. HEAD: Normocephalic. EYES: No scleral icterus. No injection or drainage. NECK: Supple, trachea midline. No JVD or lymphadenopathy. CARDIOVASCULAR: Regular rate and rhythm without murmurs, gallops, or rubs. RESPIRATORY: Breath sounds equal bilaterally. No accessory muscle use. GASTROINTESTINAL: Abdomen soft, non-tender, nondistended. MUSCULOSKELETAL: No cyanosis, or edema. Right-sided weakness BACK: Nontender without obvious deformity. No CVA tenderness. Procedures none A/P Problem List: (1) Arterial ischemic stroke, MCA (middle cerebral artery), left, acute ICD Code: I63.512 Status: Acute (2) Stenosis of both internal carotid arteries ICD Code: I65.23 Status: Acute Assessment and Plan 61-year-old man with Acute left hemispheric infarct Continue treatment per stroke protocol d/c Permissive hypertension and start Norvasc 5 mg daily Continue with Plavix, aspirin, statin PT/OT/speech therapy consultation Appreciate input from neurology Brain MRI/MRA/CT noted 2-D echo pending PMR pending High-grade stenosis right ICA, completed included left ICA Appreciate input from vascular surgery Patient will need right CEA in possible 2 weeks DVT prophylaxis Lovenox GI prophylaxis: Kapil Fernandez MD Nov 30, 2016 09:55
--- NOTE | 2016-11-30 11:15 | PD.CAR.PN ---
CVT Progress Note Subjective/Hospital Course: Patient seen full consult dictated This gentleman has a left hemispheric stroke with the total occlusion left internal carotid artery. Once occluded there is no surgery to be done. In addition patient has a high grade stenosis of the right internal carotid artery which obviously has to be attended. Because patient had acute stroke I would wait at least 10 days to 2 weeks to attend the right carotid so patient can be discharged from my point at any time on Plavix and aspirin and I will bring him back in about 10 days for right internal carotid endarterectomy My office will make arrangements for the same Thanks Lavelle 11/30/16 Global aphasia slightly improved patient is now understanding more most of the conversation Still has expressive aphasia especially in the face of the fact that patient speaks 3 languages so sometimes is easier for him to converse in Nigerian sometimes and Austrian sometimes in Jordanian so we tried to converse in all 3 which actually went okay Patient can be discharged from my point on Plavix and aspirin and I will see patient for follow-up and schedule him for the right internal carotid endarterectomy within next 2 weeks Objective: Vital Signs Date Time Temp Pulse Resp B/P Pulse Ox O2 Delivery O2 Flow Rate FiO2 11/30/16 08:00 96.7 71 17 153/82 95 11/30/16 04:00 97.0 61 18 142/79 93 11/30/16 00:00 98.2 70 18 161/78 99 11/29/16 20:00 98.9 72 18 183/85 97 11/29/16 19:38 66 11/29/16 16:12 97.8 78 20 170/78 95 11/29/16 11:55 98.5 72 20 171/80 97 Result Diagram: 11/27/16 1445 11/27/16 1445 Unruly Mccrary MD Nov 30, 2016 11:15
--- NOTE | 2016-11-30 12:33 | HHI.PR ---
Review/Management Daily Summary 11/29 mri acute left hemisphere infarcts very severe multilevel cervical and intracranial vascular dx imaging studies discussed with neuro rad yest tristian Snow and Micky Stacy pt is stable neuro exam, aphasia and mild right hemiparesis ct angio results from august 2016 showed severe bilateral ica dx but at that time amenable to surgery now I doubt of any vascular surgery possibilities but will obtain opinion asa plavix and statin 11/30 vascular surgery notes seen at bedside he is unchanged i will sign off Subjective Subjective Comments No acute events reported No headache Active Medications Current Medications Medications (Trade) Dose Ordered Sig/Con Route Start Time Stop Time Status Last Admin (NS Flush) 2 ml BID IV FLUSH 11/27/16 21:00 11/30/16 08:17 (NS Flush) 2 ml UNSCH PRN IV FLUSH 11/27/16 18:45 (Vasotec Inj) 1.25 mg Q4H PRN IV 11/27/16 18:45 (Plavix) 75 mg DAILY PO 11/28/16 09:00 11/30/16 08:17 (Lovenox Inj) 40 mg Q24H SQ 11/27/16 20:00 11/29/16 20:26 (Aspirin Chew) 81 mg DAILY PO 11/28/16 10:30 11/30/16 08:17 (Lipitor) 40 mg HS PO 11/28/16 21:00 11/29/16 20:25 (Norvasc) 5 mg DAILY PO 11/30/16 09:00 11/30/16 08:50 Allergies Allergies Coded Allergies Lidocaine (Verified Allergy, Severe, Swelling, 11/27/16) Exam I&O / VS 11/29/16 11/29/16 11/30/16 15:00 23:00 07:00 Intake Total 240 ml Balance 240 ml Intake Oral 240 ml # Voids 8 Vital Signs Date Time Temp Pulse Resp B/P Pulse Ox O2 Delivery O2 Flow Rate FiO2 11/30/16 08:00 96.7 71 17 153/82 95 11/30/16 04:00 97.0 61 18 142/79 93 11/30/16 00:00 98.2 70 18 161/78 99 11/29/16 20:00 98.9 72 18 183/85 97 11/29/16 19:38 66 11/29/16 16:12 97.8 78 20 170/78 95 Objective Micro and Labs Date/Time Procedure Status Source Growth 11/27/16 14:45 Urine Culture - Final Complete Urine Random Urine NO GROWTH IN 48 HOURS. 11/27/16 14:45 Aerobic Blood Culture - Preliminary Resulted Blood Peripheral NO GROWTH IN 3 DAYS 11/27/16 14:45 Anaerobic Blood Culture - Preliminary Resulted Blood Peripheral NO GROWTH IN 3 DAYS Denice Delcid MD Nov 30, 2016 12:33
--- NOTE | 2016-11-30 14:34 | ECHRPT ---
Indication: cva/tia CONCLUSIONS Normal left ventricular size and wall thickness. The left ventricular systolic function is normal wi th an estimated ejection fraction in the range of 55-60%. Left ventricular diastolic function parameters a re normal. BP: / HR: Rhythm: Sinus MEASUREMENTS (Male / Female) Normal Values Technical Quality:Fair 2D ECHO LV Diastolic Diameter PLAX 4.9 cm 4.2 - 5.9 / 3.9 - 5.3 cm LV Systolic Diameter PLAX 3.8 cm IVS Diastolic Thickness 1.1 cm 0.6 - 1.0 / 0.6 - 0.9 cm LVPW Diastolic Thickness 0.7 cm 0.6 - 1.0 / 0.6 - 0.9 cm LV Relative Wall Thickness 0.4 RV Internal Dim ED PLAX 1.9 cm M-MODE Aortic Root Diameter MM 3.3 cm AV Cusp Separation MM 2.1 cm DOPPLER AV Peak Velocity 203.0 cm/s AV Peak Gradient 16.5 mmHg AV Mean Gradient 8.0 mmHg AV Velocity Time Integral 43.4 cm LVOT Peak Velocity 128.0 cm/s LVOT Peak Gradient 6.6 mmHg LVOT Velocity Time Integral 27.8 cm Mitral E Point Velocity 58.2 cm/s Mitral A Point Velocity 77.5 cm/s Mitral E to A Ratio 0.8 LV E' Lateral Velocity 6.2 cm/s Mitral E to LV E' Lateral Ratio 9.3 LV E' Septal Velocity 6.0 cm/s Mitral E to LV E' Septal Ratio 9.6 TR Peak Velocity 156.0 cm/s TR Peak Gradient 9.7 mmHg FINDINGS LEFT VENTRICLE Normal left ventricular size and wall thickness. The left ventricular systolic function is normal wi th an estimated ejection fraction in the range of 55-60%. Left ventricular diastolic function parameters a re normal. RIGHT VENTRICLE Normal right ventricular size and systolic function. LEFT ATRIUM The left atrial size is normal. RIGHT ATRIUM The right atrial size is normal. ATRIAL SEPTUM Normal atrial septal thickness without atrial level shunting by limited color doppler interrogation. AORTA The aortic root and proximal ascending aorta are normal in size on limited imaging. MITRAL VALVE Structurally normal mitral valve. No mitral valve stenosis or regurgitation. AORTIC VALVE Trileaflet aortic valve. No aortic valve stenosis or regurgitation. TRICUSPID VALVE Structurally normal tricuspid valve. No tricuspid valve stenosis or regurgitation. PULMONARY VALVE The pulmonary valve is not well visualized. VESSELS The inferior vena cava is normal in size. PERICARDIUM No pericardial effusion. Baltazar Minor MD, FACC (Electronically Signed) Final Date:30 November 2016 14:32
[2016-11-30] MEDS: ENOXAPARIN SODIUM 40 MG/0.4 ML SYRINGE SQ SCH (21:58)
[2016-11-30] MEDS: ATORVASTATIN 40 MG TAB PO SCH (21:58)
[2016-12-01] VITALS: BP 162/83; PULSE 72; RESP 20; TEMP 97.2; O2SAT 96
[2016-12-01 04:00] VITALS: BP 141/76; PULSE 63; RESP 18; TEMP 97.7; O2SAT 96
[2016-12-01 08:05] VITALS: BP 135/68; PULSE 66; RESP 17; TEMP 98.2; O2SAT 96
[2016-12-01] MEDS: ASPIRIN 81 MG CHEW TAB PO SCH (08:35)
[2016-12-01] MEDS: amLODIPine BESYLATE 5 MG TAB PO SCH (08:35)
[2016-12-01] MEDS: CLOPIDOGREL 75 MG TAB PO SCH (08:36)
[2016-12-01] MEDS: SODIUM CHLORIDE 0.9% FLUSH 5 ML FLUSH IV FLUSH SCH (09:17)
--- NOTE | 2016-12-01 10:39 | HHI.PR ---
Subjective Remarks Follow-up acute left hemispheric infarct 11/29/16-patient seen and examined, global aphasia, right sided weakness. by the bedside and discussed about neck MRA report 11/30/16-patient seen and examined, still with some right-sided weakness . Patient alert to place, date and place of , presence of . 12/01/16-patient seen and examined as he was sitting by the nursing's station were stable with global aphasia and some mild right sided weakness. No acute event overnight. Discharge disposition to [facility] pending Objective Vitals Vital Signs Date Time Temp Pulse Resp B/P Pulse Ox O2 Delivery O2 Flow Rate FiO2 12/01/16 08:05 98.2 66 17 135/68 96 12/01/16 04:00 97.7 63 18 141/76 96 12/01/16 00:00 97.2 72 20 162/83 96 11/30/16 19:00 97.3 86 18 152/73 95 11/30/16 18:00 72 11/30/16 16:00 96.2 77 18 157/79 98 11/30/16 12:00 96.2 70 18 154/73 98 I/O 11/30/16 11/30/16 11/30/16 12/01/16 12/01/16 12/01/16 07:00 15:00 23:00 07:00 15:00 23:00 Intake Total 840 ml 360 ml 240 ml Balance 840 ml 360 ml 240 ml Intake Oral 840 ml 360 ml 240 ml # Voids 8 3 3 2 # Bowel Movements 1 Result Diagram: 11/27/16 1445 11/27/16 1445 Objective Remarks GENERAL: NAD with global aphasia SKIN: Warm and dry. HEAD: Normocephalic. EYES: No scleral icterus. No injection or drainage. NECK: Supple, trachea midline. No JVD or lymphadenopathy. CARDIOVASCULAR: Regular rate and rhythm without murmurs, gallops, or rubs. RESPIRATORY: Breath sounds equal bilaterally. No accessory muscle use. GASTROINTESTINAL: Abdomen soft, non-tender, nondistended. MUSCULOSKELETAL: No cyanosis, or edema. Right-sided weakness BACK: Nontender without obvious deformity. No CVA tenderness. Procedures none A/P Problem List: (1) Arterial ischemic stroke, MCA (middle cerebral artery), left, acute ICD Code: I63.512 Status: Acute (2) Stenosis of both internal carotid arteries ICD Code: I65.23 Status: Acute Assessment and Plan 61-year-old man with Acute left hemispheric infarct Continue treatment per stroke protocol s/p Permissive hypertension and continue Norvasc 5 mg daily Continue with Plavix, aspirin, statin PT/OT/speech therapy appreciated Appreciate input from neurology Brain MRI/MRA/CT noted 2-D echo 55-60% PMR pending and discharge possible to [place] rehabilitation pending High-grade stenosis right ICA, completed included left ICA Appreciate input from vascular surgery Patient will need right CEA in possible 2 weeks outpatient Hypertension Currently on Norvasc 5 mg DVT prophylaxis Lovenox GI prophylaxis: Kapil Fernandez MD Dec 01, 2016 10:39
[2016-12-01 12:36] VITALS: BP 150/71; PULSE 73; RESP 17; TEMP 96.1; O2SAT 98
[2016-12-01] MEDS ORDERED: AMLO5 PO (14:52)
--- NOTE | 2016-12-01 14:55 | HHI.DS ---
Discharge Summary Admission Date Nov 27, 2016 at 17:52 Discharge Date: Dec 01, 2016 Admitting Diagnosis subacute stroke, altered mental status (1) Arterial ischemic stroke, MCA (middle cerebral artery), left, acute ICD Code: I63.512 (2) Stenosis of both internal carotid arteries ICD Code: I65.23 Procedures none Brief History - From Admission Mr. Sabillon is 61 yo, who immigrated [facility] with history of CVA in August. At the time of the stroke, it was determined he had a "blocked artery in his neck" (right side) and surgery was advised. The pt declined the procedure. His reported residual effects of memory and word finding problems. Mrs. Sabillon reported she returned home this past Monday from a trip and was met at the airport by her . He was reported to be in his normal state of health. Decline was noted on as pt was reported to have increased physical weakness. Monday, he is reported to have decreased appetite and on Monday he did not eat and stayed in bed due to weakness. Today, as his condition did not improve, Mrs. Sabillon brought her into [facility] ED for evaluation of his condition. Upon interview, Mr. Sabillon reported he is not thinking well and "I can't say the right words." He said he was frustrated that "I can't think right." CBC/BMP: 11/27/16 1445 11/27/16 1445 Imaging Last Impressions Neck CTA 11/28/16 0000 Signed Impressions: Service Date/Time: Monday, November 28, 2016 13:46 - CONCLUSION: High-grade to critical stenosis right internal carotid. Occluded left internal carotid. Salty Stacy MD FACR Head Magnetic Resonance Angiography 11/28/16 0000 Signed Impressions: Service Date/Time: Monday, November 28, 2016 17:22 - CONCLUSION: 1. Absent flow left internal carotid artery with reconstitution of flow in the cavernous portion, probably partially from anterior communicating artery and partially from posterior communicating artery. 2. Intact but diminished flow in the left middle cerebral artery vessels. 3. Absent flow in the right P1 segment with reconstitution in the P2 segment via the PCOM. 4. No flow seen in the right A1 segment on the MRA, but string-like flow was discernible on a CTA brain performed earlier today. Toby Gonzalez MD Head CTA 11/28/16 0000 Signed Impressions: Service Date/Time: Monday, November 28, 2016 13:46 - CONCLUSION: 1. Findings a short segment occlusion of both proximal internal carotid arteries with reconstitution and likely retrograde filling bilaterally. 2. There significant disease high-grade stenosis involving the cavernous carotid arteries bilaterally. 3. No intracranial thrombosis or stenosis is identified. Slim Snow MD Brain MRI 11/28/16 0000 Signed Impressions: Service Date/Time: Monday, November 28, 2016 17:22 - CONCLUSION: Acute nonhemorrhagic infarctions involving the anterior and mid left MCA distribution , including frontal and parietal cortex, white matter, and anterior basal ganglia. No evidence of mass effect or significant cerebral edema. Toby Gonzalez MD Head CT 11/27/16 1432 Signed Impressions: Service Date/Time: Sunday, November 27, 2016 16:01 - CONCLUSION: Area of low density at the left frontal lobe and a small area at the anterior left basal ganglia likely representing sub acute areas of infarction. Uri Davis MD Chest X-Ray 11/27/161431 Signed Impressions: Service Date/Time: Sunday, November 27, 2016 15:13 - CONCLUSION: 1. No acute findings. Vamshi Lowe MD Carotid Artery Ultrasound 11/27/16 0000 Signed Impressions: Service Date/Time: Sunday, November 27, 2016 22:53 - CONCLUSION: 1. Occlusion left internal carotid artery. 2. High-grade stenosis of the right internal carotid artery, greater than 70%% stenosis. Carotid CTA recommended. Kapil Bustillo MD PE at Discharge GENERAL: NAD with global aphasia SKIN: Warm and dry. HEAD: Normocephalic. EYES: No scleral icterus. No injection or drainage. NECK: Supple, trachea midline. No JVD or lymphadenopathy. CARDIOVASCULAR: Regular rate and rhythm without murmurs, gallops, or rubs. RESPIRATORY: Breath sounds equal bilaterally. No accessory muscle use. GASTROINTESTINAL: Abdomen soft, non-tender, nondistended. MUSCULOSKELETAL: No cyanosis, or edema. Right-sided weakness BACK: Nontender without obvious deformity. No CVA tenderness. Hospital Course Patient was diagnosed with Acute left hemispheric infarct for which neurology was consulted and he was treated for CVA stroke protocol. He was continued on Plavix and aspirin as well as statin. Permissive hypertension was initially initiated and subsequently patient started on by mouth Norvasc. PT/OT/speech therapy were all consulted as well as PMR. Secondary to high-grade stenoses in the right ICA vascular surgery was consulted however surgery was postponed until after 2 weeks. DVT and GI prophylaxis were provided. Pt Condition on Discharge: Stable Discharge Disposition: Rehab Inpatient Discharge Time: > 30 minutes Discharge Instructions DIET: Follow Instructions for: Heart Healthy Diet Activities you can perform: Regular-No Restrictions Follow up Referrals: PCP Follow-up - 2-3 Days Surgical New Medications: Amlodipine (Norvasc) 5 Mg Tab 5 MG PO DAILY Blood Pressure Management #30 TAB Continued Medications: Aspirin (Aspirin) 325 Mg Tab 325 MG PO DAILY #30 Ref 0 TAB Clopidogrel (Plavix) 75 Mg Tab 75 MG PO DAILY Blood Clot Prevention #30 Ref 0 TAB Indomethacin (Indomethacin) 25 Mg Cap 25 MG PO Q8HR Take with food, milk, or antacids to decrease stomach adverse effects. PRN PAIN SCALE 1 TO 10 #12 Ref 0 CAP Rosuvastatin (Crestor) 40 Mg Tab 40 MG PO HS Cholesterol Management #30 Ref 0 TAB Discontinued Medications: Cephalexin (Keflex) 500 Mg Cap 500 MG PO Q8H Infection #30 Ref 0 CAP Prednisone (Prednisone) 50 Mg Tab 50 MG PO DAILY #5 TAB Kapil Marrufo MD Dec 01, 2016 14:55
[2016-12-01 16:05] VITALS: BP 137/67; PULSE 75; RESP 17; TEMP 98.3; O2SAT 97
== END 2016-12-01 16:41 | DRG 65 ==
LOC: NEPE 14:17 → NEDA 17:52 → N05B 21:15
PROVIDERS: ADMIT Hospitalist; ATTEND Hospitalist
DX: I63.512 Cerebral infarction due to unspecified occlusion or stenosis of left middle cerebral artery (principal); G81.91 Hemiplegia, unspecified affecting right dominant side; R47.01 Aphasia; I65.23 Occlusion and stenosis of bilateral carotid arteries; I10 Essential (primary) hypertension; Z86.73 Personal history of transient ischemic attack (TIA), and cerebral infarction without residual deficits; T45.526A Underdosing of antithrombotic drugs, initial encounter; Z91.120 Patient's intentional underdosing of medication regimen due to financial hardship; Z87.891 Personal history of nicotine dependence
CPT/HCPCS: 70450; 70496; 70498; 70544; 70551; 71010; 80053; 80061; 80307; 81001; 82140; 82550; 82948; 83036; 83690; 83735; 84443; 84484; 85025; 85610; 85730; 87040; 87086; 87185; 93005; 93306; 93880; J1650; J7030; Q9967

== ENCOUNTER 2016-12-22 10:03 | Inpatient (IN) | payer OTHER ==
[~2016-12-22] VITALS: Ht 175.3 cm; Wt 79.1 kg
[~2016-12-22 10:03] MED LIST changes: -CEPH-460 PO; -INDO25CA PO; +LEVE500 PO; -PRED50 PO; +REST15CA PO; +TAMS5CAP PO
[2016-12-22] MEDS ORDERED: SODIUM CHLORID 0.9% 500 ML IV PRN (10:15)
[2016-12-22] MEDS ORDERED: METOPROLOL TARTRATE 25 MG TAB PO PRN (10:15)
[2016-12-22] MEDS ORDERED: CHLORHEXIDINE GLUCONATE 2 % 1 PACK (2 CLOTHS) TOPICAL PRN (10:15)
[2016-12-22] MEDS ORDERED: INSULIN HUMAN REGULAR 1,000 UNITS/10 ML VIAL SQ PRN (10:15)
[2016-12-22] MEDS ORDERED: LACTATED RINGER'S 1000 ML IV PRN (10:15)
[2016-12-22] MEDS ORDERED: POVIDONE IODINE 5% (ANTISEPSIS KIT) 4 APPLICATIONS EACH NARE PRN (10:15)
[2016-12-22] MEDS ORDERED: ATOR1TAB18 PO (10:17)
[2016-12-22] MEDS ORDERED: FLEE5TAB PO (10:17)
[2016-12-22] MEDS ORDERED: CLON0.1T PO (10:17)
[2016-12-22] MEDS ORDERED: MILKSUS PO (10:17)
[2016-12-22] MEDS ORDERED: OXYB5TAB PO (10:17)
[2016-12-22] MEDS ORDERED: ENOX40IN SQ (10:19)
[2016-12-22] MEDS ORDERED: ceFAZolin 2 GM PREMIX 50 ML ONE (10:25)
[2016-12-22 10:33] VITALS: BP 136/75; PULSE 73; RESP 22; TEMP 97.8; O2SAT 98
[2016-12-22] MEDS ORDERED: NEOSTIGMINE 3 MG/3 ML SYR IV ONE (12:00)
[2016-12-22] MEDS ORDERED: NORMOSOL R INJ 1,000 ML IV ONE (12:00)
[2016-12-22] MEDS ORDERED: NITROGLYCERIN 1000 MCG/5 ML VIAL IV ONE (12:00)
[2016-12-22] MEDS ORDERED: PHENYLEPHRINE HCL 10 MG/ML VIAL IV ONE (12:00)
[2016-12-22] MEDS ORDERED: ONDANSETRON HCL 4 MG/2 ML VIAL IV PUSH ONE (12:00)
[2016-12-22] MEDS ORDERED: PROPOFOL 200 MG/20 ML AMP IV ONE (12:00)
[2016-12-22] MEDS ORDERED: LACTATED RINGER'S 1000 ML INJ 1,000 ML IV ONE (12:00)
[2016-12-22] MEDS ORDERED: HEPARIN SODIUM - SQ 10,000 UNITS/ML VIAL OTHER ONE (13:15)
[2016-12-22] MEDS ORDERED: HEPARIN SODIUM - IV 10,000 UNITS/10 ML VIAL IV ONE (13:34)
[2016-12-22] MEDS ORDERED: PROTAMINE SULFATE 50 MG/5 ML VIAL IV ONE (14:16)
[2016-12-22] MEDS ORDERED: SODIUM CHLORIDE 0.9% FLUSH 10 ML FLUSH IV FLUSH PRN (15:00)
[2016-12-22] MEDS ORDERED: NALOXONE HCL 0.4 MG/ML AMP IV PRN (15:00)
[2016-12-22] MEDS ORDERED: ONDANSETRON HCL 4 MG/2 ML VIAL IV PRN (15:00)
[2016-12-22] MEDS ORDERED: Post-op Orders (for Pharmacy) MISC XX ONE (15:00)
[2016-12-22] MEDS ORDERED: fentaNYL CITRATE 250 MCG/5 ML AMP ONE ×2 (15:36→15:38)
[2016-12-22] MEDS ORDERED: *ONDANSETRON 4 MG VIAL PERIprocedural Use ONLY ONE (15:43)
[2016-12-22] MEDS: LACTATED RINGER'S 1000 ML INJ 1,000 ML IV SCH (16:04)
[2016-12-22] MEDS ORDERED: COMMODE 3-IN-11 MIS (16:40)
[2016-12-22] MEDS ORDERED: WHEEMIS3 (16:40)
[2016-12-22] MEDS ORDERED: TUB TRANSFER BO1 MIS (16:40)
[2016-12-22] MEDS ORDERED: GETGO ROLLING W1 MI1 (16:40)
[2016-12-22] MEDS ORDERED: DO NOT ADM ANY ANTICOAGULANT DRUGS PRN (17:30)
[2016-12-22] MEDS ORDERED: MAGNESIUM HYDROXIDE SUSP 30 ML CUP PO PRN (17:30)
[2016-12-22] MEDS ORDERED: BISACODYL EC 5 MG TABEC PO PRN (17:30)
[2016-12-22] MEDS ORDERED: TEMAZEPAM 15 MG CAP PO PRN (17:45)
[2016-12-22 18:45] VITALS: BP 185/95; PULSE 98; RESP 16; TEMP 98.4; O2SAT 94
[2016-12-22 19:00] VITALS: PULSE 95
[2016-12-22 20:00] VITALS: BP 189/106; PULSE 103; PULSE 95; RESP 20; TEMP 98; O2SAT 97
[2016-12-22] MEDS: DOCUSATE SODIUM 100 MG CAP PO SCH (20:29)
[2016-12-22] MEDS: cloNIDine HCL 0.1 MG TAB PO SCH (20:29)
[2016-12-22] MEDS: TAMSULOSIN HCL 0.4 MG CAP PO SCH (20:29)
[2016-12-22] MEDS: levETIRAcetam 500 MG TAB PO SCH (20:29)
[2016-12-22] MEDS: ATORVASTATIN 80 MG TAB PO SCH (20:30)
[2016-12-22] MEDS: SODIUM CHLORIDE 0.9% FLUSH 10 ML FLUSH IV FLUSH SCH (20:33)
[2016-12-22] MEDS: MORPHINE SULFATE 4 MG/ML INJ IV PRN (21:05)
[2016-12-22 23:30] VITALS: PULSE 79
[2016-12-23] VITALS (13 sets, daily range): BP systolic 111–155; BP diastolic 58–77; PULSE 77–100; RESP 16–19; TEMP 97.8–98.8; O2SAT 93–98
[2016-12-23] MEDS: TOLTERODINE TARTRATE 2 MG CAP LA PO SCH ×2 (01:45→20:39)
[2016-12-23] MEDS: LACTATED RINGER'S 1000 ML INJ 1,000 ML IV SCH ×2 (03:50→12:24)
[2016-12-23 04:50] LABS: AUTOMATED NEUTROPHIL # 11.7 TH/MM3 (1.8-7.7); BASOPHIL % 0.2 % (0.0-2.0); HEMO FLAGS DIFF FINAL; LYMPH % 6.6 % (9.0-44.0); MEAN CELL VOLUME 91.5 FL (80.0-100.0); MEAN CORPUSCULAR HEMOGLOBIN 31.8 PG (27.0-34.0); MEAN CORPUSCULAR HGB CONC 34.7 % (32.0-36.0); MONO % 11.6 % (0.0-8.0); NEUT % 81.6 % (16.0-70.0); PLATELET COUNT 248 TH/MM3 (150-450); RED BLOOD COUNT 4.27 MIL/MM3 (4.50-5.90); RED CELL DISTRIBUTION WIDTH 14.4 % (11.6-17.2); WHITE BLOOD COUNT 14.4 TH/MM3 (4.0-11.0)
[2016-12-23 05:10] LABS: BICARBONATE 26.1 MEQ/L (21.0-32.0); POTASSIUM 4.5 MEQ/L (3.5-5.1)
[2016-12-23] MEDS: levETIRAcetam 500 MG TAB PO SCH ×2 (08:52→20:39)
[2016-12-23] MEDS: CLOPIDOGREL 75 MG TAB PO SCH (08:52)
[2016-12-23] MEDS: cloNIDine HCL 0.1 MG TAB PO SCH ×2 (08:52→20:39)
[2016-12-23] MEDS: DOCUSATE SODIUM 100 MG CAP PO SCH ×2 (08:52→21:00)
[2016-12-23] MEDS: SODIUM CHLORIDE 0.9% FLUSH 10 ML FLUSH IV FLUSH SCH ×2 (08:53→20:41)
[2016-12-23] MEDS: MORPHINE SULFATE 4 MG/ML INJ IV PRN ×2 (08:54→22:54)
[2016-12-23] MEDS ORDERED: ENOXAPARIN SODIUM 40 MG/0.4 ML SYRINGE SQ SCH (14:04)
--- NOTE | 2016-12-23 14:28 | PD.CAR.PN ---
CVT Progress Note Subjective/Hospital Course: Patient is status post the right carotid endarterectomy Incisions clean and dry FERNIE drain removed Neurologic exam is as before the surgery Patient is aphasic and has right hemiplegia brought on by left hemispheric stroke several months ago Awake alert oriented Patient can be transferred back to [facility] Objective: Vital Signs Date Time Temp Pulse Resp B/P Pulse Ox O2 Delivery O2 Flow Rate FiO2 12/23/16 11:00 87 12/23/16 11:00 98.3 87 19 111/58 98 12/23/16 07:55 93 Nasal Cannula 2.00 12/23/16 07:15 97.9 90 19 139/77 97 12/23/16 07:00 90 12/23/16 04:00 98.1 84 16 130/73 96 12/23/16 03:30 86 12/23/16 00:30 97 Nasal Cannula 2.00 12/23/16 00:00 97.8 77 16 133/76 95 12/22/16 23:30 79 12/22/16 21:10 16 12/22/16 20:00 98.0 103 20 189/106 97 12/22/16 19:00 95 12/22/16 18:45 98.4 98 16 185/95 94 12/22/16 18:22 98.4 92 16 141/67 98 Nasal Cannula 2 12/22/16 18:00 91 14 168/70 98 Nasal Cannula 2 12/22/16 17:00 90 16 157/75 97 Nasal Cannula 2 12/22/16 16:30 85 14 141/69 97 Nasal Cannula 2 12/22/16 16:15 83 17 131/65 97 Nasal Cannula 2 12/22/16 16:00 85 15 138/77 96 Nasal Cannula 2 12/22/16 15:45 84 19 156/72 96 Nasal Cannula 2 12/22/16 15:30 80 16 160/74 96 Nasal Cannula 2 12/22/16 15:15 73 16 150/74 99 Nasal Cannula 2 12/22/16 15:07 98.0 80 17 173/88 100 Simple Mask 6 Labs: Laboratory Tests Test 12/23/16 04:25 White Blood Count 14.4 TH/MM3 (4.0-11.0) Red Blood Count 4.27 MIL/MM3 (4.50-5.90) Hemoglobin 13.6 GM/DL (13.0-17.0) Hematocrit 39.0 % (39.0-51.0) Mean Corpuscular Volume 91.5 FL (80.0-100.0) Mean Corpuscular Hemoglobin 31.8 PG (27.0-34.0) Mean Corpuscular Hemoglobin 34.7 % Concent (32.0-36.0) Red Cell Distribution Width 14.4 % (11.6-17.2) Platelet Count 248 TH/MM3 (150-450) Mean Platelet Volume 9.2 FL (7.0-11.0) Neutrophils (%) (Auto) 81.6 % (16.0-70.0) Lymphocytes (%) (Auto) 6.6 % (9.0-44.0) Monocytes (%) (Auto) 11.6 % (0.0-8.0) Eosinophils (%) (Auto) 0.0 % (0.0-4.0) Basophils (%) (Auto) 0.2 % (0.0-2.0) Neutrophils # (Auto) 11.7 TH/MM3 (1.8-7.7) Lymphocytes # (Auto) 1.0 TH/MM3 (1.0-4.8) Monocytes # (Auto) 1.7 TH/MM3 (0-0.9) Eosinophils # (Auto) 0.0 TH/MM3 (0-0.4) Basophils # (Auto) 0.0 TH/MM3 (0-0.2) CBC Comment DIFF FINAL Differential Comment Sodium Level 140 MEQ/L (136-145) Potassium Level 4.5 MEQ/L (3.5-5.1) Chloride Level 103 MEQ/L (98-107) Carbon Dioxide Level 26.1 MEQ/L (21.0-32.0) Anion Gap 11 MEQ/L (5-15) Blood Urea Nitrogen 13 MG/DL (7-18) Creatinine 0.86 MG/DL (0.60-1.30) Estimat Glomerular Filtration 90 ML/MIN (>89) Rate Random Glucose 120 MG/DL (74-106) Calcium Level 8.8 MG/DL (8.5-10.1) Result Diagram: 12/23/16 0425 12/23/16 0425 Unruly Mccrary MD Dec 23, 2016 14:28
[2016-12-23] MEDS ORDERED: OXYC1TAB63 PO (16:09)
[2016-12-23] MEDS: ATORVASTATIN 80 MG TAB PO SCH (20:39)
[2016-12-23] MEDS: TAMSULOSIN HCL 0.4 MG CAP PO SCH (20:39)
[2016-12-23] MEDS ORDERED: PLAV75TA29 PO (21:10)
[2016-12-23] MEDS ORDERED: ATOR1TAB18 PO (21:10)
[2016-12-24 03:00] VITALS: BP 113/89; PULSE 79; RESP 22; TEMP 98.6; O2SAT 94
[2016-12-24] MEDS: oxyCODONE/ACETAMINOPHEN 5 MG/325 MG TAB PO PRN ×2 (05:05→09:20)
[2016-12-24] MEDS: LACTATED RINGER'S 1000 ML INJ 1,000 ML IV SCH (06:49)
[2016-12-24 07:00] VITALS: BP 116/62; PULSE 79; PULSE 84; RESP 20; TEMP 98.3; O2SAT 98
[2016-12-24] MEDS: SODIUM CHLORIDE 0.9% FLUSH 10 ML FLUSH IV FLUSH SCH (09:00)
[2016-12-24] MEDS: cloNIDine HCL 0.1 MG TAB PO SCH (09:20)
[2016-12-24] MEDS: DOCUSATE SODIUM 100 MG CAP PO SCH (09:20)
[2016-12-24] MEDS: levETIRAcetam 500 MG TAB PO SCH (09:20)
[2016-12-24] MEDS: CLOPIDOGREL 75 MG TAB PO SCH (09:20)
[2016-12-24 09:26] VITALS: O2SAT 95
[2016-12-24 11:00] VITALS: BP 142/70; PULSE 96; PULSE 97; RESP 20; TEMP 97.6; O2SAT 97
[2016-12-24 11:22] VITALS: RESP 20
--- NOTE | 2016-12-24 15:35 | PD.CAR.PN ---
CVT Progress Note Subjective/Hospital Course: Patient is status post the right carotid endarterectomy Incisions clean and dry FERNIE drain removed Neurologic exam is as before the surgery Patient is aphasic and has right hemiplegia brought on by left hemispheric stroke several months ago Awake alert oriented Patient can be transferred back to [facility] today 12/24/16 Apparently [facility] declined to take the patient back, due to the fact that in their opinion, patient has reached his functional potential, cannot improve anymore on his physical activity and therefore he should go home. Once this was obvious yesterday late in the afternoon, there was no other option but to keep the patient overnight in the hospital as a border Patient therefore spent another night in the hospital and is being discharged today home A written the prescriptions for the patient Follow-up with me in 3-4 weeks in the office Follow-up with neurology and medicine as per their schedules and needs Objective: Vital Signs Date Time Temp Pulse Resp B/P Pulse Ox O2 Delivery O2 Flow Rate FiO2 12/24/16 11:22 20 12/24/16 11:00 97 12/24/16 11:00 97.6 96 20 142/70 97 12/24/16 09:26 95 Nasal Cannula 2.00 12/24/16 07:00 98.3 84 20 116/62 98 12/24/16 07:00 79 12/24/16 03:00 79 12/24/16 03:00 98.6 79 22 113/89 94 12/23/16 23:00 98.2 99 19 149/76 95 12/23/16 23:00 99 12/23/16 23:00 18 12/23/16 22:38 95 Nasal Cannula 2.00 12/23/16 21:30 97.9 100 19 131/73 96 Result Diagram: 12/23/16 0425 12/23/16 0425 Unruly Mccrary MD Dec 24, 2016 15:35
--- NOTE | 2016-12-24 20:13 | MP ---
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 PROCEDURE Right carotid endarterectomy patch angioplasty. SURGEON Edu Donnelly MD ANESTHESIA General. ESTIMATED BLOOD LOSS 150 mL. INDICATIONS FOR PROCEDURE This unfortunate 60-year-old gentleman suffered a few weeks ago a left hemispheric stroke and, at that time, was found to have left internal carotid artery occlusion and right very tight stenosis. The patient was known to have bilateral severe carotid stenosis in the past and was seen somewhere else, I believe [facility], where he refused surgery. PROCEDURE IN DETAIL The patient is prepped and draped usual fashion. Right peristernocleidomastoid incision is made, deepened down through platysma and into the carotid sheath. Facial vein is ligated and divide. Common carotid internal, external carotid arteries are now dissected with sharp dissection and then a Rumell umbilical tape. Tourniquet is placed around each without cinching them down. The hypoglossal nerve is carefully identified and preserved. The patient is now given 7000 units of heparin and then a clamp is applied. Bulldog to the internal carotid and the DeBakey angled clamp to the common carotid artery. Vessels opened longitudinally with To scissors common internal carotid artery. The plaque extends to about an inch and a half into the internal carotid artery fairly high. Once we are beyond the plaque, the argyle shunt is placed and blood flow immediately reestablished knowing that the patient has a contralateral occlusion of the carotid. Once argyle shunt is in place, the plaque is observed. This is a heavily calcified plaque which nearly completely occludes the vessel. There is a soft component to the plaque which is distally composed of cheesy sort of darkish material. Plaque is now dissected in the media plane using [place] dissector and removed in one-piece. Area irrigated with copious amounts of saline, meticulous hemostasis obtained. A little segment of intima is tacked down with 7-0 Prolene in internal carotid artery and then the bovine 8-mm patch is placed on the vessel, sewn in with running 6-0 Prolene. Prior to completion of the repair, the argyle shunt is removed, 6-0 Prolene repair of the artery completed. Blood flow is now reestablished in usual order and fashion preventing internal embolization. The area irrigated with saline, 7 flat FERNIE placed. A piece of Surgicel placed over the vessel. The patient given 20 units of protamine and then incision is closed in layers and then once more the carotid flow checked with Doppler. The patient has a brisk flow in common internal, external carotid arteries. Incisions are closed using #1 Vicryl running stitch for the deep layer and platysma and then skin is closed with 4-0 Monocryl. Benzoin and Steri-strips applied. The patient tolerated procedure well. At the end of procedure, the patient is normotensive and stable. He is awaken and is moving the left side as he did before the surgery. Esau KWONG /4:28 PM /7:59 PM
== END 2016-12-24 17:00 | disposition home or self-care (01) | DRG 38 ==
LOC: HSDI 10:03 → HCVR 18:44
PROVIDERS: ADMIT Surgery; ATTEND Surgery
PROC: 03CK0ZZ Extirpation of Matter from Right Internal Carotid Artery, Open Approach (ICD-10-PCS; principal; 2016-12-22 12:01)
PROC: 03UK0KZ Supplement Right Internal Carotid Artery with Nonautologous Tissue Substitute, Open Approach (ICD-10-PCS; 2016-12-22 12:01)
DX: I65.23 Occlusion and stenosis of bilateral carotid arteries (principal); I69.351 Hemiplegia and hemiparesis following cerebral infarction affecting right dominant side; I10 Essential (primary) hypertension; I69.320 Aphasia following cerebral infarction; Z87.891 Personal history of nicotine dependence
CPT/HCPCS: 80048; 85025; 88304; 88305; 88311; C1768; J0690; J1644; J1650; J2270; J2370; J2405; J2710; J2720; J3010; J7120